=== PATIENT | female | born 1970 | race Caucasian/White ===

== ENCOUNTER → 2019-05-24 | Outpatient (CLI) | payer OTHER | LOC: CAT 12:56 | DX: Z13.6 Encounter for screening for cardiovascular disorders (principal); E78.00 Pure hypercholesterolemia, unspecified; I25.10 Atherosclerotic heart disease of native coronary artery without angina pectoris ==

== ENCOUNTER → 2021-01-02 | Outpatient (CLI) | payer OTHER | LOC: SJCVCIMAG 08:54 | PROVIDERS: ATTEND Internal Medicine Cardiovascular Disease | DX: R07.89 Other chest pain (principal); R00.2 Palpitations; I10 Essential (primary) hypertension; E78.5 Hyperlipidemia, unspecified; R53.83 Other fatigue ==

== ENCOUNTER 2021-04-08 10:35 | Inpatient (IN) | payer BC ==
[~2021-04-08] VITALS: Ht 165.1 cm; Wt 86.2 kg
[~2021-04-08 10:35] MED LIST: PREDNISONE 10 M10 MG PO
[2021-04-08 10:40] VITALS: BP 128/75
[2021-04-08 11:40] LABS: ABSOLUTE NEUTROPHILS 8.7 thou/uL (1.4-8.2); BASOPHILS 0.4 % (0.0-2.0); EOSINOPHILS 0.3 % (0.0-3.0); HEMATOCRIT 39.8 % (37.0-47.0); HEMOGLOBIN 13.3 gm/dL (12.0-15.0); LYMPHOCYTES 7.8 % (24.0-44.0); MCH 27.2 pg (26.0-34.0); MCHC 33.5 g/dL (28.0-37.0); MCV 81.1 fL (80.0-100.0); MONOCYTES 2.9 % (1.0-8.0); PLATELET COUNT 327 thou/uL (150-400); POLYS 88.6 % (36.0-66.0); RBC 4.91 mil/uL (4.20-5.00); RDW 14.2 % (10.5-14.5); WBC 9.8 thou/uL (4.0-11.0)
[2021-04-08 11:49] LABS: CALCIUM 9.6 mg/dL (8.5-10.1); CREATININE 0.8 mg/dL (0.6-1.0); POTASSIUM 3.8 mmol/L (3.5-5.1)
[2021-04-08 15:20] VITALS: BP 94/63
[2021-04-08 16:14] VITALS: BP 106/62
[2021-04-08 19:48] VITALS: BP 148/94
[2021-04-08] MEDS ORDERED: PROTONIX40 M2 PO (20:05)
[2021-04-08] MEDS ORDERED: BYSTOLIC10 MG PO (20:06)
[2021-04-08] MEDS ORDERED: MESALAMINE1.2 GM PO (20:09)
[2021-04-08] MEDS ORDERED: KETOROLAC TROME10 MG PO (20:10)
[2021-04-08] MEDS ORDERED: ONDANSETRON HCL4 M2 PO (20:11)
[2021-04-08] MEDS ORDERED: ZEBUTAL 50-3251 EACH PO (20:17)
--- NOTE | 2021-04-09 03:26 | NUR ---
ASSUMED PT CXAR ETHIS PM. PT IS ALERT AND ORIENTED X4. PT C/O OF PAIN WHICH WAS MANAGED BY PRN PAIN MEDS. PT DID NOT C/O OF N/V. MEDS WERE GIVEN PER EMAR ORDERS. NO CONCERNS WERE VERBALIZED. PT IS ON RA. WILL CONTIUE TO MONITOR.
[2021-04-09 03:58] LABS: CALCIUM 9.1 mg/dL (8.5-10.1); CREATININE 0.7 mg/dL (0.6-1.0); MAGNESIUM 2.3 mg/dL (1.8-2.4); POTASSIUM 3.7 mmol/L (3.5-5.1)
[2021-04-09 04:51] LABS: ABSOLUTE NEUTROPHILS 7.9 thou/uL (1.4-8.2); BASOPHILS 0.2 % (0.0-2.0); HEMATOCRIT 36.1 % (37.0-47.0); HEMOGLOBIN 12.1 gm/dL (12.0-15.0); LYMPHOCYTES 8.2 % (24.0-44.0); MCH 27.5 pg (26.0-34.0); MCHC 33.6 g/dL (28.0-37.0); MCV 81.7 fL (80.0-100.0); MONOCYTES 1.1 % (1.0-8.0); PLATELET COUNT 319 thou/uL (150-400); POLYS 90.5 % (36.0-66.0); RBC 4.42 mil/uL (4.20-5.00); RDW 14.3 % (10.5-14.5); WBC 8.8 thou/uL (4.0-11.0)
[2021-04-09 07:33] VITALS: BP 98/51
[2021-04-09 15:55] VITALS: BP 118/76
[2021-04-09 19:37] VITALS: BP 123/77
--- NOTE | 2021-04-10 03:51 | NUR ---
Assumed pt care at 1900. A/OX4,VSS. C/o abd pain/headache,medicated per EMAR with relief reported. Up ad troy w/o problems,IVF infusing. Reports loose stools after Lactulose and wants it held this morning. Denies N/V. Resting quietly at this time,will contineu to monitor pt.
[2021-04-10 04:05] VITALS: BP 113/69
[2021-04-10 09:20] VITALS: BP 123/79
--- NOTE | 2021-04-10 15:19 | NUR ---
ASSUMED CARE AT SHIFT CHANGE. PT A/O X 4, PLESANT AND CALM THROUGHOUT SHIFT. PT C/O MENSAH AND ABD PAIN THROUGHOUT THE DAY. PRN MEDS GIVEN PER MAR WITH SOME RELIEF. NAUSEA MEDS ALSO GIVEN PER REQUEST. PER GI TO PATIENT, GI WAITING FOR INFLAMMATION TO DECREASE TO POSSIBLY SCOPE AND HOPING TO AVOID SURGERY. VSS. PT UP TO BATHROOM WITH SBA FROM SPOUSE, UP AD LILIANA OTHERWISE, BM X 2 SO FAR TODAY. ASSESSMENTS PER MAR. WILL CONT TO MONITOR AND FOLLOW POC.
[2021-04-10 16:19] VITALS: BP 101/53
--- NOTE | 2021-04-10 16:46 | NUR ---
PT ADMITTED RELATED TO UC AND SBO. CM REVIEWED CHART AND SPOKE WITH CARE TEAM. CM MET WITH PT AND SPOUSE AT BEDSIDE THIS DAY. PT APPEARED TO BE A&0 X4. CM ROLE INTRODUCED. 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 PT INDICATED NO DME OR HH HX. PT INDICATED SHE PLANS TO DC HOME ONCE MEDICALLY STABLE. CM FOLLOWING SHOULD ANY DC NEEDS ARISE. CASE CLOSED.
[2021-04-10 20:20] VITALS: BP 114/69
--- NOTE | 2021-04-11 04:22 | NUR ---
Assumed pt care at 1900. A/OX4,VSS. C/o abd/migraine headache,medicated per EMAR with relief reported. Having loose stools,c/o rectal pain hemmorhoids cream applied as needed. Nausea with no emesis reported. Resting quietly w/o any distress noted at this time will continue to monitor pt.
[2021-04-11 08:00] VITALS: BP 127/78
[2021-04-11 10:02] LABS: HEMATOCRIT 38.5 % (37.0-47.0); HEMOGLOBIN 12.7 gm/dL (12.0-15.0); MCH 27.2 pg (26.0-34.0); MCHC 32.9 g/dL (28.0-37.0); MCV 82.6 fL (80.0-100.0); RBC 4.66 mil/uL (4.20-5.00); RDW 14.7 % (10.5-14.5); WBC 10.3 thou/uL (4.0-11.0)
[2021-04-11 10:21] LABS: ALBUMIN 3.5 g/dL (3.4-5.0); CALCIUM 9.4 mg/dL (8.5-10.1); TOTAL BILIRUBIN 0.3 mg/dL (0.2-1.0)
--- NOTE | 2021-04-11 16:02 | NUR ---
PT HAD REPEAT LABS AND KUB THIS DAY. IT IS ANTICIPATED THAT PT WILL BE ABLE TO DC HOME ONCE MEDICALLY WITH NO NEEDS. CM FOLLOWING.
[2021-04-11 16:34] VITALS: BP 112/64; BP 118/64
[2021-04-11 19:45] VITALS: BP 118/68
--- NOTE | 2021-04-11 19:54 | NUR ---
Assumed pt care this am vs stable, migrane and pain managed with medications as per emar. Diet adn medications are tolerated well, Partial relief is noted, had muddy looking stools d/t medications given. Up ad troy, poc followed progresing well towards goals. at the bed side. Endorsed located within [facility] night nurse.
[2021-04-11 21:16] VITALS: BP 118/68
--- NOTE | 2021-04-12 01:33 | NUR ---
Assumed care on 04/11/21 @ 1900, in bed with spouse at bedside. A&Ox4, c/o migraine headache, zofran iv push and butalbital/apap/caffine provided as ordered. HRRR, Lungs CTA ABD Nx4Q. Hot pack on abdomen and ice on forehead. New order received from Jeremy Tapia for Torodol 30 IV Administered as ordered, and patient reports relief, denies need for Fentanyl for abd pain. BM and urine void noted, D5 fluids running @ 125. Bed in low position, hourly rounding as per unit protocol, call light within reach.
[2021-04-12 07:00] VITALS: BP 138/83
[2021-04-12] MEDS ORDERED: PREDNISONE 20 M20 M1 PO (11:32)
[2021-04-12 12:15] VITALS: BP 138/83
--- NOTE | 2021-04-12 13:37 | NUR ---
Assumed pt care at 7am.Pt in and out of bed independently to bathroom. Assessment completed.vss.Pt c/o nausea and headache.Prn meds given with relief.Dr Hampton here,dc order noted.Pt tolerated full liq given at breakfast and lunch. here early this am.Updates given. Dc summary compile and reviewed with pt .Piv and saline dc'd. Pt will be dc home with by 1400.
== END 2021-04-12 13:57 | disposition home or self-care (01) | DRG 386 ==
LOC: ER 10:35 → EROBS 13:40 → 4W 13:40
PROVIDERS: Internal Medicine Gastroenterology; Nurse Practitioner; Student in an Organized Health Care Education/Training Program; ADMIT Hospitalist; ATTEND Hospitalist
DX: K51.90 Ulcerative colitis, unspecified, without complications (principal); K56.699 Other intestinal obstruction unspecified as to partial versus complete obstruction; K59.00 Constipation, unspecified; G43.909 Migraine, unspecified, not intractable, without status migrainosus; Z20.822 Contact with and (suspected) exposure to COVID-19; Z88.6 Allergy status to analgesic agent; Z88.1 Allergy status to other antibiotic agents; Z88.7 Allergy status to serum and vaccine; Z88.8 Allergy status to other drugs, medicaments and biological substances; Z90.49 Acquired absence of other specified parts of digestive tract; Z90.710 Acquired absence of both cervix and uterus; Z28.21 Immunization not carried out because of patient refusal
CPT/HCPCS: 10040

== ENCOUNTER 2021-04-18 13:28 | Inpatient (IN) | payer BC ==
[~2021-04-18] VITALS: Ht 165.1 cm; Wt 90.7 kg
[2021-04-18] VITALS (15 sets, daily range): BP systolic 66–139; BP diastolic 22–79
--- NOTE | ~2021-04-18 | EMS ---
[address] [address] EMS Patient Care Report Name: MONI DAVID Room #: REG BALA Contreras#: [id number] Admission: 04/18/21 Attend Phys: Discharge: Date of : 66 Report #: [id number] THIS REPORT FOR: //name// Report Transmitted: 04/18/2021 13:22 EMS Care Summary [facility] MED-ACT Incident [id number] @ 04/18/2021 12:36 Incident Location [address] [place] [address] Patient MONI DAVID Female, 50 Years 1970 Patient Address [address] [place] [address] Patient History Cardiac Condition - Other,Ulcerative Colitis, Patient Allergies Morphine,Versed, Patient Medications Bystolic, Fentanyl, Fioricet, Prednisone, Chief Complaint Abdominal pain Disposition Transported No Lights/[place] Reason Abdominal Pain/Problems Transported To [facility] Narrative Arrived on scene to find a 50 y/o female who presented left lateral recumbent position on her bed. Pt presented alert, crying, guarding her abdomen, tachypneic, pale in color, diaphoretic and in obvious discomfort and distress. Pt reports to EMS that she has a hx of ulcerative colitis and that for the past [address] [address] EMS Patient Care Report Name: MONI DAVID Room #: REG BALA Contreras#: [id number] Admission: 04/18/21 Attend Phys: Discharge: Date of : 66 Report #: [id number] 2 weeks she has been experiencing severe abdominal pain. Pt reports that she was hospitalized at [facility] and that she was there for 1 week. Pt reports that she ahs been at home for a week and that her abdominal pain has not gotten any better. Pt reports that her pain initially originated in her left upper and lower abdominal quadrants and that now her entire abdomen hurts. Pt reports that she was scheduled for a colonoscopy today the 18 of April but reports that her pain has increased to the point where she cannot walk. Pt also reports that she has been experiencing nausea and vomiting and that she is also experiencing loose stools due to taking mag citrate as prep for her colonoscope. Pt denied any blood in her stool and or her vomit. Pt also reports that she felt a "pop" in her abdomen and that her pain intensified after said "pop" in her abdomen. Pt rates her pain at a 15/10. Pt denied any SOA, C/P, dizziness, weakness or any other medical complaints. Pt was transported to ED for further eval and tx. See assessment tab, VS, and flowchart for further pt care information. Initial Vitals @12:48P: 65,BP: 103/70, @13:03P: 85,BP: 94/66, @13:04P: 78,ND Suspected: false @13:13P: 78,R: 20,BP: 128/59,SpO2: 98, @13:22P: 86,R: 35,BP: 106/78,Pain: 10/10,GCS: 15,SpO2: 100,Revised Trauma: 11, @12:45P: 75,R: 24,BP: 86/58,Pain: 10/10,GCS: 15,Temp: 97.5F,SpO2: 99,Revised Trauma: 11, Impression Abdominal Pain Procedures @12:51 Fentanyl - 100 Micrograms (mcg) - Intramuscular (IM) Response: Unchanged @13:11 Fentanyl - 100 Micrograms (mcg) - Intramuscular (IM) Response: Unchanged @12:47 IV Therapy - Saline Lock 0cc (20 ga) Site: Antecubital-Left Response: UnchangedFailed @12:58 IV Therapy - Saline Lock 0cc (20 ga) Site: Hand-Right Response: UnchangedFailed @13:05 IV Therapy - Saline Lock 0cc (20 ga) Site: Antecubital-Left Response: UnchangedFailed @13:12 Ondansetron - 4 Milligrams (mg) - Oral Response: Unchanged Timeline 12:34,Call Received 12:34,Psap Call 12:36,[place] [address] EMS Patient Care Report Name: MONI DAVID Room #: REG BALA Contreras#: [id number] Admission: 04/18/21 Attend Phys: Discharge: Date of : 66 Report #: [id number] 12:37,En Route 12:42,On Scene 12:43,At Patient 12:45,BP: 86/58 M,PULSE: 75,RR: 24 R,SPO2: 99 Ox,ETCO2: ,BG: ,PAIN: 10,GCS: 15, 12:47,IV Therapy - Saline Lock 0cc 20 ga Site: Antecubital-Left,Response: UnchangedFailed, 12:48,BP: 103/70 M,PULSE: 65,RR: R,SPO2: Ox,ETCO2: ,BG: ,PAIN: ,GCS: , 12:51,Fentanyl - 100 Micrograms (mcg) - Intramuscular (IM),Response: Unchanged 12:58,IV Therapy - Saline Lock 0cc 20 ga Site: Hand-Right,Response: UnchangedFailed, 13:03,BP: 94/66 M,PULSE: 85,RR: R,SPO2: Ox,ETCO2: ,BG: ,PAIN: ,GCS: , 13:04,BP: / M,PULSE: 78,RR: R,SPO2: Ox,ETCO2: ,BG: ,PAIN: ,GCS: , 13:05,IV Therapy - Saline Lock 0cc 20 ga Site: Antecubital-Left,Response: UnchangedFailed, 13:07,Depart Scene 13:11,Fentanyl - 100 Micrograms (mcg) - Intramuscular (IM),Response: Unchanged 13:12,Ondansetron - 4 Milligrams (mg) - Oral,Response: Unchanged 13:13,BP: 128/59 M,PULSE: 78,RR: 20 R,SPO2: 98 Ox,ETCO2: ,BG: ,PAIN: ,GCS: , 13:22,BP: 106/78 M,PULSE: 86,RR: 35 R,SPO2: 100 Ox,ETCO2: ,BG: ,PAIN: 10,GCS: 15, 13:24,At Destination 13:43,Call Closed Disclaimer v1.1 Copyright 2020 [employer] This EMS Care Summary contains data elements from the applicable legal record (which may be displayed differently). It is designed to provide pertinent information for the following purposes: continuity of care, clinical quality, and state data reporting. The complete legal record is available to ED staff and administrators of the receiving hospital in [employer]'s Patient Tracker. All data is provided "as is."
[~2021-04-18 13:28] MED LIST changes: +BYSTOLIC10 MG PO; +KETOROLAC TROME10 MG PO; +MESALAMINE1.2 GM PO; +ONDANSETRON HCL4 M2 PO; +PREDNISONE 20 M20 M1 PO; +PROTONIX40 M2 PO; +ZEBUTAL 50-3251 EACH PO
[2021-04-18 13:51] LABS: HEMATOCRIT 42.6 % (37.0-47.0); HEMOGLOBIN 13.9 gm/dL (12.0-15.0); MCH 27.3 pg (26.0-34.0); MCHC 32.7 g/dL (28.0-37.0); MCV 83.4 fL (80.0-100.0); RBC 5.1 mil/uL (4.20-5.00); RDW 15.1 % (10.5-14.5)
[2021-04-18 14:10] LABS: ALBUMIN 2.4 g/dL (3.4-5.0); CREATININE 0.9 mg/dL (0.6-1.0); TOTAL BILIRUBIN 0.7 mg/dL (0.2-1.0); TOTAL PROTEIN 7.5 g/dL (6.4-8.2)
[2021-04-18 14:29] LABS: CALCIUM 9.5 mg/dL (8.5-10.1); POTASSIUM 3.4 mmol/L (3.5-5.1)
[2021-04-18 21:04] LABS: HEMATOCRIT 41.7 % (37.0-47.0); HEMOGLOBIN 13.3 gm/dL (12.0-15.0); MCH 26.7 pg (26.0-34.0); MCV 83.5 fL (80.0-100.0); RBC 4.99 mil/uL (4.20-5.00); RDW 14.8 % (10.5-14.5)
[2021-04-18 21:06] LABS: CREATININE 0.8 mg/dL (0.6-1.0); POTASSIUM 4.2 mmol/L (3.5-5.1)
[2021-04-18 21:09] LABS: ALBUMIN 1.5 g/dL (3.4-5.0); MAGNESIUM 2.3 mg/dL (1.8-2.4)
[2021-04-18 21:19] LABS: BE(vivo) -7.4 mmol/L (-2 to +3); HCO3 18.2 mmol/L (22.0-26.0); PCO2 37.1 mmHg (35.0-45.0); PO2 407.9 mmHg (80.0-100.0); sO2 99.8 % (92.0-98.0)
[2021-04-18 21:20] LABS: pH 7.308 (7.360-7.450)
[2021-04-19] VITALS (23 sets, daily range): BP systolic 81–147; BP diastolic 55–81
[2021-04-19 04:20] LABS: BE(vivo) -5.7 mmol/L (-2 to +3); HCO3 16.1 mmol/L (22.0-26.0); PCO2 23.8 mmHg (35.0-45.0); PO2 146.6 mmHg (80.0-100.0); pH 7.448 (7.360-7.450)
[2021-04-19 04:35] LABS: HEMATOCRIT 44.6 % (37.0-47.0); HEMOGLOBIN 14.7 gm/dL (12.0-15.0); MCH 27.1 pg (26.0-34.0); MCHC 32.8 g/dL (28.0-37.0); MCV 82.5 fL (80.0-100.0); RBC 5.41 mil/uL (4.20-5.00); RDW 15.1 % (10.5-14.5); WBC 9.4 thou/uL (4.0-11.0)
[2021-04-19 04:42] LABS: ALBUMIN 1.2 g/dL (3.4-5.0); CALCIUM 7.7 mg/dL (8.5-10.1); CREATININE 0.9 mg/dL (0.6-1.0); MAGNESIUM 2.1 mg/dL (1.8-2.4); PHOSPHORUS 4.7 mg/dL (2.5-4.9); POTASSIUM 4.1 mmol/L (3.5-5.1)
[2021-04-20] VITALS (22 sets, daily range): BP systolic 87–118; BP diastolic 48–70
[2021-04-20 09:09] LABS: ALBUMIN 2.6 g/dL (3.4-5.0); CALCIUM 8.2 mg/dL (8.5-10.1); CREATININE 0.5 mg/dL (0.6-1.0); MAGNESIUM 2.5 mg/dL (1.8-2.4); PHOSPHORUS 2.1 mg/dL (2.5-4.9); POTASSIUM 3.6 mmol/L (3.5-5.1)
[2021-04-20 10:25] LABS: HEMATOCRIT 30.5 % (37.0-47.0); MCH 26.8 pg (26.0-34.0); MCHC 32.8 g/dL (28.0-37.0); MCV 81.7 fL (80.0-100.0); RBC 3.73 mil/uL (4.20-5.00); RDW 14.9 % (10.5-14.5); WBC 9.9 thou/uL (4.0-11.0)
[2021-04-20 12:44] LABS: BE(vivo) -0.7 mmol/L (-2 to +3); HCO3 22.8 mmol/L (22.0-26.0); PCO2 33.4 mmHg (35.0-45.0); PO2 89.3 mmHg (80.0-100.0); pH 7.452 (7.360-7.450); sO2 97.2 % (92.0-98.0)
[2021-04-21] VITALS (16 sets, daily range): BP systolic 90–115; BP diastolic 53–74
[2021-04-21 08:24] LABS: HEMATOCRIT 30.8 % (37.0-47.0); HEMOGLOBIN 10.1 gm/dL (12.0-15.0); MCH 26.8 pg (26.0-34.0); MCHC 32.7 g/dL (28.0-37.0); MCV 82.2 fL (80.0-100.0); RBC 3.75 mil/uL (4.20-5.00); RDW 15.2 % (10.5-14.5); WBC 10.7 thou/uL (4.0-11.0)
[2021-04-21 08:42] LABS: ALBUMIN 1.9 g/dL (3.4-5.0); CALCIUM 8.4 mg/dL (8.5-10.1); CREATININE 0.6 mg/dL (0.6-1.0); MAGNESIUM 2.8 mg/dL (1.8-2.4); PHOSPHORUS 1.6 mg/dL (2.5-4.9); POTASSIUM 3.7 mmol/L (3.5-5.1); TOTAL BILIRUBIN 0.8 mg/dL (0.2-1.0); TOTAL PROTEIN 4.8 g/dL (6.4-8.2)
[2021-04-21 22:52] LABS: URINE BLOOD NEGATIVE (Negative); URINE CLARITY CLEAR; URINE COLOR ORANGE; URINE GLUCOSE-RANDOM* TRACE (Negative); URINE KETONES TRACE (Negative); URINE LEUKOCYTES-REFLEX NEGATIVE (Negative); URINE NITRITE-REFLEX NEGATIVE (Negative); URINE PROTEIN (DIPSTICK) 1+ (Negative); URINE SPECIFIC GRAVITY 1.025 (1.005-1.035); URINE UROBILINOGEN 0.2 E.U./dl (0.2-1.0)
[2021-04-21 23:03] LABS: CASTS None Seen /LPF (None Seen); ICTOTEST (BILI CONFIRMATORY) Positive (Negative); MUCUS 0-3 Light strn/LPF (None Seen); SQUAMOUS None Seen /LPF (0-3); URINE BILIRUBIN 2+ (Negative); URINE WBC-REFLEX None Seen /HPF (0-5)
[2021-04-21 23:04] LABS: BACTERIA-REFLEX 1-9 Few /HPF (None Seen); CRYSTALS None Seen /LPF (None Seen); URINE RBC None Seen /HPF (NONE SEEN)
[2021-04-22] VITALS (17 sets, daily range): BP systolic 97–127; BP diastolic 56–73
[2021-04-22 05:39] LABS: HEMOGLOBIN 10.4 gm/dL (12.0-15.0); MCH 26.7 pg (26.0-34.0); MCHC 32.4 g/dL (28.0-37.0); MCV 82.4 fL (80.0-100.0); RBC 3.89 mil/uL (4.20-5.00); RDW 14.8 % (10.5-14.5); WBC 6.8 thou/uL (4.0-11.0)
[2021-04-22 06:10] LABS: ALBUMIN 1.6 g/dL (3.4-5.0); CALCIUM 7.9 mg/dL (8.5-10.1); CREATININE 0.4 mg/dL (0.6-1.0); MAGNESIUM 2.5 mg/dL (1.8-2.4); POTASSIUM 4.2 mmol/L (3.5-5.1); TOTAL BILIRUBIN 1.2 mg/dL (0.2-1.0); TOTAL PROTEIN 4.3 g/dL (6.4-8.2)
--- NOTE | 2021-04-22 16:06 | PATH ---
[facility] [address] [place] [address] PATHOLOGY RPT PROCEDURE Name: ZENIA DAVID Room #: 239-P ADM IN M.R.#: [id number] Admission: 04/18/21 Date of : 66 Discharge: Report #: [id number] Path Case #: [id number] [facility] Accession Number: [id number] . 01 Material submitted: . sigmoid colon - SIGMOID COLON . 01 Clinical history: . LAPAROSCOPIC COLECTOMY PERFORATED BOWEL PERFORATED BOWEL, TICULENT PERITONITIS . 02 Diagnosis: Sigmoid colon (colectomy): - Transmural necrosis with perforation, marked acute and chronic inflammation, granulation tissue, and acute and chronic serositis. - Diverticulosis. (DOM:ian; 04/22/2021) QTP 04/22/2021 1300 Local . 02 Comment: We find no evidence of malignancy in any of the tissue examined. (DOM:ian; 04/22/2021) . 02 Electronically signed: . Chance Encarnacion MD, Pathologist NPI- [id number] . 01 Gross description: . The specimen is received in formalin, labeled "Zenia David, sigmoid colon". Received is an unoriented segment of colon measuring 16.2 cm in length and ranges in diameter from 1.5-4.1 cm. Both margins are stapled closed. The serosal surface is kwong-brooks to light brooks and shaggy in appearance. There are two areas of perforation measuring 1.0 x 0.4 and 2.5 x 1.5 cm, which are located 7.1 cm from the closest margin. The surrounding serosal surface is inked black. The attached pericolic fat measures up to 3.2 cm in thickness and displays overlying exudate. Several diverticula are identified. Sectioning through the attached pericolic fat reveals no readily identifiable lymph nodes. The specimen is submitted representatively as follows: . A1-A2 both margins A3-A4 plastic products sales representative sections through areas of perforation A5-A7 plastic products sales representative sections of diverticula. (CAA; 04/19/2021) QAC/QA 04/19/2021 1550 Local . 02 [place] [address] PATHOLOGY RPT PROCEDURE Name: JOANNZENIA PRICILLA Room #: 239-P ADM IN M.R.#: [id number] Admission: 04/18/21 Date of : 66 Discharge: Report #: [id number] Path Case #: [id number] Pathologist provided ICD-10: K63.1, K52.9, K65.8, K57.30 . 02 CPT . 288333 Specimen Comment: A courtesy copy of this report has been sent to [phone], [phone] Specimen Comment: [phone], Specimen Comment: Report sent to , DR HOLDEN / DR MCCORMICK Performed at: 01 [facility] [address] [place] [id number] MD Damion Benjamin MD Phone: [phone] Performed at: 02 [facility] [address] [id number] MD Chance Encarnacion MD Phone: [phone]
[2021-04-23 05:26] VITALS: BP 134/79
[2021-04-23 05:41] LABS: HEMATOCRIT 30.4 % (37.0-47.0); HEMOGLOBIN 9.8 gm/dL (12.0-15.0); MCH 26.4 pg (26.0-34.0); MCHC 32.3 g/dL (28.0-37.0); MCV 81.8 fL (80.0-100.0); RBC 3.72 mil/uL (4.20-5.00); RDW 15.1 % (10.5-14.5); WBC 7.8 thou/uL (4.0-11.0)
[2021-04-23 05:51] LABS: CALCIUM 8.1 mg/dL (8.5-10.1); CREATININE 0.4 mg/dL (0.6-1.0); POTASSIUM 3.6 mmol/L (3.5-5.1)
[2021-04-23 05:58] LABS: ALBUMIN 1.5 g/dL (3.4-5.0); DIRECT BILIRUBIN 0.8 mg/dL (<0.1-0.2); TOTAL BILIRUBIN 1.2 mg/dL (0.2-1.0); TOTAL PROTEIN 4.5 g/dL (6.4-8.2)
[2021-04-23 08:25] VITALS: BP 131/81
[2021-04-23 11:36] VITALS: BP 137/76
[2021-04-23 15:46] VITALS: BP 137/93
[2021-04-23 19:31] VITALS: BP 128/85
[2021-04-24] VITALS (7 sets, daily range): BP systolic 116–142; BP diastolic 74–82
--- NOTE | 2021-04-24 08:33 | HC ---
[facility] [address] CONSULTATION Name: MONI DAVID Room #: 209-P ADM IN M.R.#: [id number] Admission: 04/18/21 Attend Phys: Darrius Anaya MD Discharge: Date of : 66 Report #: [id number] THIS REPORT FOR: cc: Jeremy Moore MD, Christian C. MD McElhinney, Christian C. MD ~ cc: Darrius Anaya MD, Isac Antonio MD DATE OF SERVICE: 04/18/2021 HISTORY OF PRESENT ILLNESS: The patient is a 50-year-old female who is a patient of [facility], being followed for history of ulcerative colitis. She had been doing well on mesalamine orally in general, but began having a flare recently. We initially increased her dose of mesalamine, later added steroids. Despite this, she was having continued significant symptoms of pain, some bleeding and diarrhea. She was, therefore, hospitalized from 04/08/2021 to 04/12/2021 for a flare, was given IV steroids. She did report some improvement in her symptoms. A CT scan of the abdomen and pelvis at that time did show a large amount of stool and possible stricture in the sigmoid colon. Plan was to continue steroids, which she has been on at a lower dose and then proceed with colonoscopy. The patient was actually scheduled for colonoscopy with me today and she called this morning saying she was in more significant abdominal pain, although she has been having crampy abdominal pain ongoing for several days. The pain became very intense. I instructed the patient to be evaluated in the Emergency Room and we did not proceed with a colonoscopy. She called the ambulance instead. Here on admission through the Emergency Room, a CT scan of the abdomen was performed, which showed a moderate amount of free air and fluid, fluid-filled small bowel and colon consistent with a history of bowel prep for planned colonoscopy later today. The colon was distended in the upper portion of the ascending and remains distended and fluid filled. Sigmoid also fluid filled, majority of this solid stool previous identified in the colon has been evacuated from the colon. Small amount of formed stool remaining in the sigmoid colon and narrowed segment of the sigmoid persists and there was a fluid and gas collection in the cul-de-sac. I contacted Dr. Antonio and the patient is scheduled for surgery emergently today. She was given IV antibiotics in the Emergency Room. PAST MEDICAL HISTORY: Ulcerative colitis, history of migraine headaches, previous cholecystectomy, hysterectomy. ALLERGIES: VERSED, MORPHINE, TETANUS AND ZITHROMAX. REVIEW OF SYSTEMS: As per HPI. CURRENT MEDICATIONS: Prednisone 40 mg on a daily basis, Protonix 40 daily, mesalamine 1.2 grams, she has been taking 4 of those per day, ketorolac [address] [address] CONSULTATION Name: MONI DAVID Room #: 209-P ADM IN M.R.#: [id number] Admission: 04/18/21 Attend Phys: Darrius Anaya MD Discharge: Date of : 66 Report #: [id number] p.r.n., Cici p.r.n. FAMILY HISTORY: Negative for colon cancer. SOCIAL HISTORY: No tobacco use. Occasional alcohol use. PHYSICAL EXAMINATION: VITAL SIGNS: Temperature 37.0, blood pressure 139/79, respiratory rate 24, pulse 126. GENERAL: The patient is in significant distress due to abdominal pain. HEENT: Sclerae nonicteric. NECK: Supple. CARDIOVASCULAR: Regular rhythm. Tachycardic. CHEST: Clear to auscultation. ABDOMEN: Very tender. Rebound tenderness noted. Somewhat distended, but soft. EXTREMITIES: No cyanosis, clubbing or edema. LABORATORY DATA: WBC 7.0, hemoglobin 13.9, platelet count is 340. Sodium 132, potassium 3.4, chloride 98, bicarbonate 21, BUN 16, creatinine 0.9, glucose 182. Lactic acid level 5.6, calcium 9.5, magnesium 2.3. AST 93, ALT is 216, alkaline phosphatase 193, albumin 2.4. INR 1.0. COVID was negative. ASSESSMENT AND PLAN: Perforated colon, likely sigmoid colon. The patient with a history of ulcerative colitis, recent flare, being treated with steroids in addition to her scheduled mesalamine. The patient was to have a colonoscopy today for further evaluation of possible stricture, but now presents with perforation. Dr. Antonio is taking the patient to the operating room for repair, likely resection with colostomy. We will continue to follow closely. The patient has been started on IV antibiotics. Thank you for allowing me to participate in her care. <ELECTRONICALLY SIGNED> By: Jeremy Moore MD 04/24/21 0833 1808 0244 Jeremy Moore MD /nt
[2021-04-24 13:35] LABS: HEMATOCRIT 31.7 % (37.0-47.0); HEMOGLOBIN 10.2 gm/dL (12.0-15.0)
[2021-04-24 15:55] LABS: MCH 26.3 pg (26.0-34.0); MCHC 32.2 g/dL (28.0-37.0); MCV 81.7 fL (80.0-100.0); RBC 3.89 mil/uL (4.20-5.00); RDW 14.9 % (10.5-14.5); WBC 11.1 thou/uL (4.0-11.0)
[2021-04-24 15:58] LABS: CREATININE 0.5 mg/dL (0.6-1.0); POTASSIUM 3.6 mmol/L (3.5-5.1)
[2021-04-24 16:02] LABS: ALBUMIN 1.5 g/dL (3.4-5.0); MAGNESIUM 2.2 mg/dL (1.8-2.4); PHOSPHORUS 2.5 mg/dL (2.5-4.9)
[2021-04-24 17:36] LABS: BE(vivo) 3.1 mmol/L (-2 to +3); HCO3 26.5 mmol/L (22.0-26.0); PO2 105.3 mmHg (80.0-100.0); pH 7.485 (7.360-7.450); sO2 98.2 % (92.0-98.0)
[2021-04-25] VITALS (7 sets, daily range): BP systolic 110–152; BP diastolic 58–82
[2021-04-25 05:41] LABS: ABSOLUTE NEUTROPHILS 8.1 thou/uL (1.4-8.2); BASOPHILS 0.2 % (0.0-2.0); EOSINOPHILS 0.7 % (0.0-3.0); HEMATOCRIT 29.7 % (37.0-47.0); HEMOGLOBIN 9.8 gm/dL (12.0-15.0); LYMPHOCYTES 4.7 % (24.0-44.0); MCH 26.9 pg (26.0-34.0); MCHC 32.8 g/dL (28.0-37.0); PLATELET COUNT 143 thou/uL (150-400); POLYS 91.4 % (36.0-66.0); RBC 3.62 mil/uL (4.20-5.00); RDW 14.6 % (10.5-14.5); WBC 8.8 thou/uL (4.0-11.0)
[2021-04-25 06:07] LABS: ALBUMIN 1.4 g/dL (3.4-5.0); CALCIUM 7.8 mg/dL (8.5-10.1); CREATININE 0.4 mg/dL (0.6-1.0); POTASSIUM 3.2 mmol/L (3.5-5.1); TOTAL BILIRUBIN 0.9 mg/dL (0.2-1.0)
[2021-04-26] VITALS (27 sets, daily range): BP systolic 88–148; BP diastolic 50–87
[2021-04-26 10:35] LABS: HEMATOCRIT 27.6 % (37.0-47.0); MCH 26.5 pg (26.0-34.0); MCHC 32.6 g/dL (28.0-37.0); MCV 81.2 fL (80.0-100.0); RDW 14.5 % (10.5-14.5); WBC 6.9 thou/uL (4.0-11.0)
[2021-04-26 10:49] LABS: PLATELET COUNT 235 thou/uL (150-400)
[2021-04-26 11:01] LABS: ALBUMIN 1.4 g/dL (3.4-5.0); CALCIUM 7.9 mg/dL (8.5-10.1); CREATININE 0.4 mg/dL (0.6-1.0); PHOSPHORUS 2.7 mg/dL (2.5-4.9); TOTAL BILIRUBIN 0.7 mg/dL (0.2-1.0); TOTAL PROTEIN 5.1 g/dL (6.4-8.2)
[2021-04-26 11:06] LABS: POTASSIUM 2.8 mmol/L (3.5-5.1)
[2021-04-26 13:01] LABS: ABSOLUTE NEUTROPHILS 6.1 thou/uL (1.4-8.2); ANISOCYTOSIS 1+
[2021-04-26 17:18] LABS: BE(vivo) 2.6 mmol/L (-2 to +3); PO2 349.9 mmHg (80.0-100.0); pH 7.393 (7.360-7.450); sO2 99.8 % (92.0-98.0)
--- NOTE | 2021-04-26 17:19 | HC ---
[facility] [place] [address] CONSULTATION Name: MONI DAVID Room #: 242-P ADM IN M.R.#: [id number] Admission: 04/18/21 Attend Phys: Darrius Anaya MD Discharge: Date of : 66 Report #: [id number] THIS REPORT FOR: cc: Jeremy Moore MD, Christian C. MD Geha, Daniel J. MD ~ DATE OF SERVICE: 04/25/2021 INFECTIOUS DISEASE CONSULTATION DATE OF SERVICE: 04/25/2021 REASON FOR CONSULTATION: I was asked to evaluate concerning postoperative intraabdominal abscess. HISTORY OF PRESENT ILLNESS: The patient was a 50-year-old with underlying ulcerative colitis who has been on mesalamine, longstanding. She has also had issue with distal colon stricture. Hospitalized on 04/08 with flare up of her ulcerative colitis. She also was partially obstructed that was relieved with corticosteroids laxatives. She was discharged on 04/12 only to return on 04/18/2021 after she had an acute perforation, found to be due to a stercoral ulcer that was related to the sigmoid stricture. She had feculent peritonitis and underwent a laparoscopic sigmoidectomy and creation of an end colostomy. Pathology report showed colitis, but no definite degree evident from the path report. There was no evidence of tumor. She developed septic shock and was treated in the intensive care unit for several days. Extubated several days ago. She is now on 2 liters of oxygen per nasal cannula. Over the past 48 hours, she has developed increased erythema involving the abdominal wall and left flank. She was placed on vancomycin, clindamycin and Zosyn. A CT scan, which showed evidence of intraabdominal and abdominal wall abscess and drains were placed. She has had no fever or chills. She is on 2 liters of oxygen. She becomes short of breath with activity. She has not been out of bed yet. Her ostomy is functioning. Her colostomy is functioning. She has had no stool from her anus. She has had reasonable urine output. She remains edematous. Purulent drainage was aspirated from her intraabdominal fluid collection. ALLERGIES: AZITHROMYCIN, VERSED, MORPHINE, TETANUS TOXOID. MEDICATIONS: As noted on her AUG. PAST MEDICAL HISTORY: Ulcerative colitis, bilateral carpal tunnel syndrome. PAST SURGICAL HISTORY: Cholecystectomy, hysterectomy, left eye cyst. FAMILY HISTORY: No report of tuberculosis. 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 REVIEW OF SYSTEMS: A 14-point review of system was negative other than what has been described above. PHYSICAL EXAMINATION: VITAL SIGNS: She is afebrile and hemodynamically stable. On 2 liters of oxygen per nasal cannula. She had 2+ anasarca. HEENT: Abdominal wall cellulitis involving the mid to lower abdomen and pannus, which extended over to the left flank region. Erythema also extending down into her proximal thighs. No palpable adenopathy. Eyes without scleral icterus. Mouth without mucositis. NECK: Supple. She had a right IJ catheter in place with no drainage. LUNGS: Decreased breath sounds in the bases bilaterally. HEART: Regular, without murmur. ABDOMEN: Diffusely tender. She had a colostomy in the left lower quadrant, which was edematous. Laparoscopic incisions were without drainage. Three drains in the lower abdomen in place with seropurulent fluid in the bags. EXTREMITIES: Without clubbing or cyanosis. Cranial nerves intact. Strength in upper and lower extremities within normal limits. PSYCHIATRIC: Mood without anxiety. LABORATORY DATA: Reviewed. Microbiology reviewed. CT scan of the abdomen and pelvis reviewed. IMAGING: Chest x-ray reviewed. ASSESSMENT AND PLAN: A 50-year-old with longstanding ulcerative colitis with bowel stricture, who developed acute worsening and subsequent stercoral ulcer leading to bowel perforation and fecal peritonitis, now postoperative day #7 from laparoscopic sigmoid resection, peritoneal washout, colostomy formation. Now with postoperative abscesses and abdominal wall cellulitis. She has anemia, mild thrombocytopenia and left shift white count. Organisms of concern would include intestinal pathogens as well as yeast and potential resistance. Unclear how much of her ulcerative colitis is playing a role here. RECOMMENDATION: Continue broad antibiotic coverage. Await culture results. Serial CT scans will be necessary. We will discuss further with Gastroenterology and General Surgery regarding her treatment of ulcerative colitis at this point. Diuresis as much as possible to control for peripheral edema. <ELECTRONICALLY SIGNED> By: Winston Serna MD 04/26/21 1719 52 25 Winston Serna MD /nt
[2021-04-26 18:22] LABS: HEMATOCRIT 28.7 % (37.0-47.0); HEMOGLOBIN 9.4 gm/dL (12.0-15.0); MCH 26.8 pg (26.0-34.0); MCHC 32.6 g/dL (28.0-37.0); RBC 3.5 mil/uL (4.20-5.00); RDW 14.6 % (10.5-14.5)
[2021-04-26 18:39] LABS: ALBUMIN 1.8 g/dL (3.4-5.0); CALCIUM 7.8 mg/dL (8.5-10.1); CREATININE 0.4 mg/dL (0.6-1.0); MAGNESIUM 2.1 mg/dL (1.8-2.4); PHOSPHORUS 3.4 mg/dL (2.6-4.7); POTASSIUM 3.3 mmol/L (3.5-5.1)
[2021-04-27] VITALS (60 sets, daily range): BP systolic 81–126; BP diastolic 24–84
[2021-04-27 00:06] LABS: GLYCOHEMOGLOBIN (HGB A1C) 6.2 % (4.8-5.6)
[2021-04-27 05:35] LABS: ABSOLUTE NEUTROPHILS 8.3 thou/uL (1.4-8.2); BASOPHILS 0.2 % (0.0-2.0); EOSINOPHILS 0.1 % (0.0-3.0); HEMOGLOBIN 8.8 gm/dL (12.0-15.0); LYMPHOCYTES 3.6 % (24.0-44.0); MCH 26.5 pg (26.0-34.0); MCHC 32.5 g/dL (28.0-37.0); MCV 81.7 fL (80.0-100.0); MONOCYTES 5.3 % (1.0-8.0); PLATELET COUNT 296 thou/uL (150-400); POLYS 90.8 % (36.0-66.0); RDW 14.6 % (10.5-14.5); WBC 9.1 thou/uL (4.0-11.0)
[2021-04-27 05:48] LABS: ALBUMIN 1.6 g/dL (3.4-5.0); CREATININE 0.4 mg/dL (0.6-1.0); MAGNESIUM 2.1 mg/dL (1.8-2.4); PHOSPHORUS 2.8 mg/dL (2.6-4.7); POTASSIUM 3.8 mmol/L (3.5-5.1); TOTAL BILIRUBIN 0.5 mg/dL (0.2-1.0); TOTAL PROTEIN 4.8 g/dL (6.4-8.2)
[2021-04-27 09:11] LABS: BE(vivo) 3.8 mmol/L (-2 to +3); PCO2 40.3 mmHg (35.0-45.0); PO2 111.7 mmHg (80.0-100.0); pH 7.459 (7.360-7.450); sO2 98.3 % (92.0-98.0)
[2021-04-28] VITALS (33 sets, daily range): BP systolic 96–127; BP diastolic 50–90
[2021-04-28 02:16] LABS: ABSOLUTE NEUTROPHILS 10.1 thou/uL (1.4-8.2); BASOPHILS 0.4 % (0.0-2.0); EOSINOPHILS 0.5 % (0.0-3.0); HEMATOCRIT 28.3 % (37.0-47.0); HEMOGLOBIN 9.3 gm/dL (12.0-15.0); LYMPHOCYTES 5.8 % (24.0-44.0); MCH 26.5 pg (26.0-34.0); MCHC 32.8 g/dL (28.0-37.0); MCV 80.8 fL (80.0-100.0); MONOCYTES 4.7 % (1.0-8.0); POLYS 88.6 % (36.0-66.0); RDW 14.8 % (10.5-14.5); WBC 11.4 thou/uL (4.0-11.0)
[2021-04-28 02:21] LABS: PLATELET COUNT 468 thou/uL (150-400)
[2021-04-28 02:29] LABS: MAGNESIUM 1.8 mg/dL (1.8-2.4)
[2021-04-28 02:32] LABS: ALBUMIN 1.9 g/dL (3.4-5.0); CALCIUM 7.9 mg/dL (8.5-10.1); CREATININE 0.4 mg/dL (0.6-1.0); POTASSIUM 3.1 mmol/L (3.5-5.1); TOTAL BILIRUBIN 0.7 mg/dL (0.2-1.0); TOTAL PROTEIN 5.2 g/dL (6.4-8.2)
[2021-04-28 04:33] LABS: BE(vivo) 6.4 mmol/L (-2 to +3); PO2 143.4 mmHg (80.0-100.0); pH 7.504 (7.360-7.450)
[2021-04-28 21:08] LABS: ALBUMIN 1.8 g/dL (3.4-5.0); CALCIUM 7.8 mg/dL (8.5-10.1); CREATININE 0.3 mg/dL (0.6-1.0); MAGNESIUM 1.8 mg/dL (1.8-2.4); PHOSPHORUS 2.6 mg/dL (2.6-4.7); POTASSIUM 3.7 mmol/L (3.5-5.1); TOTAL BILIRUBIN 0.7 mg/dL (0.2-1.0); TOTAL PROTEIN 4.8 g/dL (6.4-8.2)
[2021-04-29] VITALS (43 sets, daily range): BP systolic 90–131; BP diastolic 51–80
[2021-04-29 04:35] LABS: ABSOLUTE NEUTROPHILS 12.3 thou/uL (1.4-8.2); BASOPHILS 0.5 % (0.0-2.0); EOSINOPHILS 0.5 % (0.0-3.0); HEMATOCRIT 28.5 % (37.0-47.0); HEMOGLOBIN 9.6 gm/dL (12.0-15.0); LYMPHOCYTES 6.5 % (24.0-44.0); MCH 27.4 pg (26.0-34.0); MCHC 33.9 g/dL (28.0-37.0); MONOCYTES 4.4 % (1.0-8.0); PLATELET COUNT 538 thou/uL (150-400); POLYS 88.1 % (36.0-66.0); RBC 3.52 mil/uL (4.20-5.00); RDW 14.9 % (10.5-14.5)
[2021-04-29 04:48] LABS: ALBUMIN 1.8 g/dL (3.4-5.0); CALCIUM 8.1 mg/dL (8.5-10.1); CREATININE 0.3 mg/dL (0.6-1.0); MAGNESIUM 1.9 mg/dL (1.8-2.4); PHOSPHORUS 2.3 mg/dL (2.6-4.7); POTASSIUM 3.5 mmol/L (3.5-5.1); TOTAL BILIRUBIN 0.9 mg/dL (0.2-1.0); TOTAL PROTEIN 5.1 g/dL (6.4-8.2)
[2021-04-29 05:33] LABS: BE(vivo) 7.7 mmol/L (-2 to +3); HCO3 30.7 mmol/L (22.0-26.0); PCO2 36.6 mmHg (35.0-45.0); PO2 77.8 mmHg (80.0-100.0); pH 7.541 (7.360-7.450); sO2 96.8 % (92.0-98.0)
[2021-04-30] VITALS (34 sets, daily range): BP systolic 91–120; BP diastolic 39–75
[2021-04-30 05:33] LABS: CALCIUM 8.1 mg/dL (8.5-10.1); CREATININE 0.4 mg/dL (0.6-1.0); PHOSPHORUS 2.5 mg/dL (2.5-4.9)
[2021-04-30 05:37] LABS: POTASSIUM 2.8 mmol/L (3.5-5.1)
[2021-04-30 09:45] LABS: HEMATOCRIT 25.1 % (37.0-47.0); HEMOGLOBIN 7.9 gm/dL (12.0-15.0); MCH 26.2 pg (26.0-34.0); MCHC 31.5 g/dL (28.0-37.0); MCV 83.3 fL (80.0-100.0); RBC 3.01 mil/uL (4.20-5.00); RDW 15.2 % (10.5-14.5); WBC 9.9 thou/uL (4.0-11.0)
--- NOTE | 2021-04-30 15:07 | PATH ---
[facility] [address] [place] [address] PATHOLOGY RPT PROCEDURE Name: MONI DAVID Room #: 242-P ADM IN M.R.#: [id number] Admission: 04/18/21 Date of : 66 Discharge: Report #: [id number] Path Case #: [id number] Note [facility] Accession Number: [id number] TESTS RESULT FLAG UNITS REF RANGE LAB Clinician Provided Cytology Information No. of containers..01 Other (Miscellaneous) Source: 01 ABDOMEN FLUID DIAGNOSIS: 01 ABDOMEN FLUID NEGATIVE FOR MALIGNANT CELLS. THIS INTERPRETATION INCLUDES EVALUATION OF A CELL BLOCK. COMMENT, ABUNDANT BLOOD AND ACUTE INFLAMMATORY CELLS PRESENT. ALSO FOREIGN VEGETABLE MATTER PRESENT SUGGEST CLINICAL CORRELATION Signed out by: 01 Damion Benjamin MD, Pathologist NPI- [id number] Performed by: Briana Alexander, Rn Appeals ([facility]) Gross description: 01 2ML, TAVO CALHOUN /THEA 04/26/2021 1852 Local FLAG LEGEND: L-Low Normal,H-High Normal,LL-Alert Low,HH-Alert High <-Panic Low,>-Panic High,A-Abnormal,AA-Critical Abnormal Performed at: [address] [place] [address] Damion Benjamin MD, Specimen Comment: A courtesy copy of this report has been sent to [phone] Specimen Comment: Report sent to Specimen Comment: A duplicate report has been generated due to demographic updates. Performed at: [address], [place], [place] [id number] MD Damion Benjamin MD Phone: [phone]
[2021-05-01] VITALS (20 sets, daily range): BP systolic 101–141; BP diastolic 53–87
[2021-05-01 05:24] LABS: HEMATOCRIT 24.8 % (37.0-47.0); HEMOGLOBIN 8.1 gm/dL (12.0-15.0); MCH 26.8 pg (26.0-34.0); MCHC 32.6 g/dL (28.0-37.0); MCV 82.3 fL (80.0-100.0); RBC 3.01 mil/uL (4.20-5.00); WBC 10.4 thou/uL (4.0-11.0)
[2021-05-01 06:04] LABS: POTASSIUM 3.6 mmol/L (3.5-5.1)
[2021-05-01 06:05] LABS: ALBUMIN 1.4 g/dL (3.4-5.0); CALCIUM 8.2 mg/dL (8.5-10.1); CREATININE 0.5 mg/dL (0.6-1.0); MAGNESIUM 2.1 mg/dL (1.8-2.4); TOTAL BILIRUBIN 0.4 mg/dL (0.2-1.0); TOTAL PROTEIN 5.1 g/dL (6.4-8.2)
[2021-05-01 12:50] LABS: % SATURATION 7 % (20-39); IRON 9 ug/dL (50-170); TIBC 123 ug/dL (250-450)
[2021-05-02] VITALS (32 sets, daily range): BP systolic 102–151; BP diastolic 64–96
[2021-05-02 05:28] LABS: CALCIUM 8.2 mg/dL (8.5-10.1); CREATININE 0.4 mg/dL (0.6-1.0); PHOSPHORUS 3.1 mg/dL (2.5-4.9); POTASSIUM 3.8 mmol/L (3.5-5.1)
--- NOTE | 2021-05-02 09:11 | EKG ---
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: [id number] : 1970 Requested By: Neida Minaya Order Number: [id number] MD: Good Dexter Measurements Intervals Clark Rate: 119 P: 17 WV: 140 QRS: 56 QRSD: 76 T: 208 QT: 278 QTc: 392 Interpretive Statements Sinus tachycardia Borderline repolarization abnormality Compared to ECG 01/18/2007 14:47:[address] segment abnormality is now present Electronically Signed On 05-02-2021 9:11:18 [employer] by Good Dexter [email or web address] <ELECTRONICALLY SIGNED> By: Good Dexter MD, [facility] 05/02/21 0911 2316 2316 Good Dexter MD, FACC /EPI
--- NOTE | 2021-05-02 18:04 | HC ---
[facility] [place] [address] CONSULTATION Name: MONI DAVID Room #: 242-P ADM IN M.R.#: [id number] Admission: 04/18/21 Attend Phys: Isac Antonio MD Discharge: Date of : 66 Report #: [id number] THIS REPORT FOR: cc: Jeremy Moore MD, Christian C. MD Althoff,Rodo Akers MD ~ DATE OF SERVICE: 04/29/2021 CHIEF COMPLAINT: Surgical wound to the abdominal wall. HISTORY OF PRESENT ILLNESS: This is a 50-year-old female patient with a history of ulcerative colitis. She had a recent hospitalization in March, was able to be discharged home. She was apparently at home, sitting on the toilet when she felt a pop and then developed severe abdominal pain. She was in the process of undergoing a bowel prep for an elective colonoscopy. She presented to the Emergency Department, was found to have pneumoperitoneum. She underwent emergency surgery by Dr. Antonio initially on 04/18/2021. She was found to have feculent peritonitis and a large fecaloma near sigmoid stricture at the rectosigmoid junction. She underwent laparoscopic sigmoidectomy and laparoscopic creation of an end colostomy at that time. On 04/26/2021, she was noted to have some abdominal wall cellulitis, underwent exploratory laparotomy, abdominal washout, placement of an ABThera wound VAC and incision and drainage of the left flank and abdominal wall area. Then, on 04/28/2021, she underwent for a second look laparotomy with abdominal washout and placement of drains and abdominal closure. I was asked by Dr. Antonio to see her in consultation for ongoing wound care. The patient at this time is in ICU. She states she feels weak, but is feeling somewhat better. PAST MEDICAL HISTORY: History of ulcerative colitis, previous cholecystectomy and hysterectomy. MEDICATIONS: Includes pantoprazole, Bystolic, mesalamine, ketorolac, ondansetron, Zebutal. ALLERGIES: AZITHROMYCIN, MIDAZOLAM, MORPHINE, TETANUS VACCINE AND TOXOID. SOCIAL HISTORY: The patient admits to occasional alcohol use. She is , accompanied by her . 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 No history of tobacco use. FAMILY HISTORY: Noncontributory. REVIEW OF SYSTEMS: Reviewed and negative other than in the history of present illness and otherwise were unobtainable due to her fatigue and pain. PHYSICAL EXAMINATION: [facility] [address] [place] [address] CONSULTATION Name: MONI DAVID Room #: 242-P ADM IN .[place].#: [id number] Admission: 04/18/21 Attend Phys: Isac Antonio MD Discharge: Date of : 66 Report #: [id number] VITAL SIGNS: The patient's vital signs at this time include temperature 36.7, pulse 101, blood pressure of 101/58, respiratory rate of 37. GENERAL: This is a somewhat chronically ill-appearing female patient who appears to be in mild discomfort. HEENT: Head normocephalic. Nose and throat are clear. NECK: Supple. LUNGS: Diminished. HEART: Regular rhythm. ABDOMEN: Soft. There is some generalized tenderness. There is a midline surgical incision that is closed loosely. There are a few gauze tesha in place. There is no overt erythema. A colostomy is in place with an ostomy appliance in place. There is no bleeding or appearance of abnormal drainage. Just lateral to that on the left side of the abdominal wall, there is a surgical wound that is fairly deep with undermining, that approaches the colostomy in the subcutaneous space as well as extends inferiorly. There is no overt cellulitis at this time of the abdominal wall. NEUROLOGIC: The patient is alert and oriented. LABORATORY STUDIES: Include sodium 141, potassium 3.5, chloride 104, CO2 of 29, BUN 5, creatinine is 0.3, glucose 109, phosphorus 2.3, albumin is 1.8. White blood cell count is 14,000 with a hemoglobin of 9.6. CLINICAL IMPRESSION: 1. Surgical wound, abdominal wall. 2. Surgical incision, abdominal wall, status post laparoscopic sigmoidectomy and end-colostomy creation on 04/18/2021. 3. Surgical incision to the left abdominal wall following abdominal wall abscesses, following feculent peritonitis. 4. Ulcerative colitis. 5. Anemia. 6. Recent steroid use. RECOMMENDATIONS: At this point in time, I have discussed findings and details with Dr. Antonio. At this point, we will repack the left-sided wound with saline moist gauze. I think once we get some granulation and we are not in direct contact subcutaneously with the end-colostomy, I think a wound VAC would be a consideration here. We will continue with the wicking iodoform gauze to the incision line of the anterior abdominal wall with a dry gauze and ABD changed at least daily and as needed. She will need nutritional support. She has an NG tube in place at this time, possible consideration of parenteral nutrition would be a consideration. I have discussed findings and plan of care with both the [address] [place] [address] CONSULTATION Name: MONI DAVID Room #: 242-P ADM IN [place].#: [id number] Admission: 04/18/21 Attend Phys: Isac Antonio MD Discharge: Date of : 66 Report #: [id number] patient and her at the bedside as well as with Dr. Antonio. I appreciate being asked to see her in consultation. <ELECTRONICALLY SIGNED> By: Rodo Mcduffie MD 05/02/21 1804 [id number] Rodo Mcduffie MD /nt
[2021-05-03] VITALS (16 sets, daily range): BP systolic 111–133; BP diastolic 69–92
[2021-05-03 16:10] LABS: CALCIUM 8.6 mg/dL (8.5-10.1); CREATININE 0.5 mg/dL (0.6-1.0); MAGNESIUM 1.8 mg/dL (1.8-2.4); PHOSPHORUS 3.2 mg/dL (2.5-4.9); POTASSIUM 3.7 mmol/L (3.5-5.1)
[2021-05-04] VITALS (7 sets, daily range): BP systolic 114–128; BP diastolic 48–82
[2021-05-04 05:27] LABS: HEMATOCRIT 26.7 % (37.0-47.0); HEMOGLOBIN 8.7 gm/dL (12.0-15.0); MCH 26.3 pg (26.0-34.0); MCHC 32.5 g/dL (28.0-37.0); MCV 81.1 fL (80.0-100.0); RBC 3.29 mil/uL (4.20-5.00); RDW 15.1 % (10.5-14.5); WBC 15.2 thou/uL (4.0-11.0)
[2021-05-04 05:51] LABS: ALBUMIN 1.4 g/dL (3.4-5.0); CALCIUM 8.5 mg/dL (8.5-10.1); CREATININE 0.4 mg/dL (0.6-1.0); MAGNESIUM 1.8 mg/dL (1.8-2.4); POTASSIUM 3.6 mmol/L (3.5-5.1); TOTAL BILIRUBIN 0.5 mg/dL (0.2-1.0); TOTAL PROTEIN 5.6 g/dL (6.4-8.2)
[2021-05-05 00:05] VITALS: BP 129/77
[2021-05-05 04:47] VITALS: BP 121/77
[2021-05-05 04:48] LABS: ALBUMIN 1.4 g/dL (3.4-5.0); CALCIUM 8.8 mg/dL (8.5-10.1); CREATININE 0.5 mg/dL (0.6-1.0); MAGNESIUM 1.8 mg/dL (1.8-2.4); POTASSIUM 3.4 mmol/L (3.5-5.1); TOTAL BILIRUBIN 0.5 mg/dL (0.2-1.0); TOTAL PROTEIN 5.8 g/dL (6.4-8.2)
[2021-05-05 08:43] VITALS: BP 106/67
[2021-05-05 16:51] VITALS: BP 137/84
[2021-05-05 20:55] VITALS: BP 125/85
[2021-05-06 04:45] VITALS: BP 140/87
[2021-05-06 04:48] LABS: HEMATOCRIT 24.4 % (37.0-47.0); HEMOGLOBIN 7.9 gm/dL (12.0-15.0); MCH 26.3 pg (26.0-34.0); MCHC 32.2 g/dL (28.0-37.0); MCV 81.7 fL (80.0-100.0); RBC 2.99 mil/uL (4.20-5.00); RDW 15.2 % (10.5-14.5); WBC 23.4 thou/uL (4.0-11.0)
[2021-05-06 05:04] LABS: ALBUMIN 1.3 g/dL (3.4-5.0); CALCIUM 8.5 mg/dL (8.5-10.1); CREATININE 0.5 mg/dL (0.6-1.0); MAGNESIUM 1.7 mg/dL (1.8-2.4); PHOSPHORUS 3.2 mg/dL (2.5-4.9); POTASSIUM 3.7 mmol/L (3.5-5.1)
[2021-05-06 07:40] VITALS: BP 127/73
[2021-05-06 12:35] VITALS: BP 133/88
[2021-05-06 15:47] VITALS: BP 125/78
[2021-05-06 19:52] VITALS: BP 121/67
[2021-05-06 20:41] LABS: URINE BILIRUBIN NEGATIVE (Negative); URINE BLOOD NEGATIVE (Negative); URINE CLARITY SL CLOUDY; URINE COLOR YELLOW; URINE GLUCOSE-RANDOM* NEGATIVE (Negative); URINE KETONES 1+ (Negative); URINE LEUKOCYTES-REFLEX NEGATIVE (Negative); URINE NITRITE-REFLEX NEGATIVE (Negative); URINE PROTEIN (DIPSTICK) NEGATIVE (Negative); URINE SPECIFIC GRAVITY 1.025 (1.005-1.035); URINE UROBILINOGEN 0.2 E.U./dl (0.2-1.0)
[2021-05-07 03:59] VITALS: BP 116/67
[2021-05-07 05:35] LABS: HEMATOCRIT 23.3 % (37.0-47.0); HEMOGLOBIN 7.4 gm/dL (12.0-15.0); MCH 26.1 pg (26.0-34.0); MCHC 31.6 g/dL (28.0-37.0); MCV 82.4 fL (80.0-100.0); RBC 2.83 mil/uL (4.20-5.00); RDW 15.7 % (10.5-14.5); WBC 23.5 thou/uL (4.0-11.0)
[2021-05-07 05:51] LABS: PLATELET COUNT 474 thou/uL (150-400)
[2021-05-07 06:27] LABS: ALBUMIN 1.2 g/dL (3.4-5.0); CALCIUM 8.3 mg/dL (8.5-10.1); CREATININE 0.5 mg/dL (0.6-1.0); MAGNESIUM 1.9 mg/dL (1.8-2.4); POTASSIUM 3.3 mmol/L (3.5-5.1); TOTAL BILIRUBIN 0.4 mg/dL (0.2-1.0); TOTAL PROTEIN 5.8 g/dL (6.4-8.2)
[2021-05-07 07:48] LABS: PLATELET ESTIMATE INCREASED
[2021-05-07 07:50] VITALS: BP 112/75
[2021-05-07 11:29] VITALS: BP 112/75
[2021-05-07 16:39] VITALS: BP 123/75
[2021-05-07 19:41] VITALS: BP 126/81
[2021-05-08 04:39] VITALS: BP 129/77
[2021-05-08 05:51] LABS: HEMATOCRIT 23.1 % (37.0-47.0); HEMOGLOBIN 7.3 gm/dL (12.0-15.0); MCHC 31.7 g/dL (28.0-37.0); MCV 82.1 fL (80.0-100.0); RBC 2.82 mil/uL (4.20-5.00); RDW 15.7 % (10.5-14.5); WBC 24.6 thou/uL (4.0-11.0)
[2021-05-08 06:38] LABS: ALBUMIN 1.3 g/dL (3.4-5.0); CALCIUM 8.4 mg/dL (8.5-10.1); CREATININE 0.5 mg/dL (0.6-1.0); PHOSPHORUS 3.3 mg/dL (2.5-4.9); POTASSIUM 4.1 mmol/L (3.5-5.1)
[2021-05-08 08:51] VITALS: BP 131/82
[2021-05-08 19:32] VITALS: BP 124/83
[2021-05-09 03:15] LABS: HEMOGLOBIN 6.7 gm/dL (12.0-15.0)
[2021-05-09 03:16] LABS: HEMATOCRIT 21.1 % (37.0-47.0); MCH 25.7 pg (26.0-34.0); MCHC 31.6 g/dL (28.0-37.0); MCV 81.1 fL (80.0-100.0); PLATELET COUNT 543 thou/uL (150-400); RDW 15.6 % (10.5-14.5); WBC 18.5 thou/uL (4.0-11.0)
[2021-05-09 03:20] LABS: ALBUMIN 1.3 g/dL (3.4-5.0); CREATININE 0.5 mg/dL (0.6-1.0); PHOSPHORUS 3.1 mg/dL (2.5-4.9)
[2021-05-09 03:28] LABS: POTASSIUM 3.1 mmol/L (3.5-5.1)
[2021-05-09 03:29] VITALS: BP 119/72
[2021-05-09 07:11] LABS: ABSOLUTE NEUTROPHILS 16.3 thou/uL (1.4-8.2); METAMYELOCYTES 2 %; PLATELET ESTIMATE INCREASED
[2021-05-09 07:12] LABS: ANISOCYTOSIS 1+; POIKILOCYTOSIS 1+; POLYCHROMASIA 1+; SCHISTOCYTES 1+
[2021-05-09 08:00] VITALS: BP 127/82
[2021-05-09 08:50] VITALS: BP 130/82; BP 135/81
[2021-05-09 11:04] VITALS: BP 122/78; BP 135/81; BP 141/91
[2021-05-09 14:51] LABS: HEMATOCRIT 26.5 % (37.0-47.0); HEMOGLOBIN 8.4 gm/dL (12.0-15.0)
[2021-05-09 16:00] VITALS: BP 135/93
[2021-05-09 19:17] VITALS: BP 139/91
[2021-05-10 03:48] VITALS: BP 118/80
[2021-05-10 06:41] LABS: HEMATOCRIT 23.3 % (37.0-47.0); HEMOGLOBIN 7.5 gm/dL (12.0-15.0); MCHC 32.1 g/dL (28.0-37.0); MCV 81.1 fL (80.0-100.0); RBC 2.87 mil/uL (4.20-5.00); RDW 14.9 % (10.5-14.5); WBC 14.1 thou/uL (4.0-11.0)
[2021-05-10 06:55] LABS: PLATELET COUNT 367 thou/uL (150-400)
[2021-05-10 07:06] LABS: ALBUMIN 1.1 g/dL (3.4-5.0); CALCIUM 6.8 mg/dL (8.5-10.1); CREATININE 0.7 mg/dL (0.6-1.0); PHOSPHORUS 2.4 mg/dL (2.6-4.7)
[2021-05-10 07:09] LABS: POTASSIUM 2.9 mmol/L (3.5-5.1)
[2021-05-10 07:43] VITALS: BP 129/83
[2021-05-10 11:18] LABS: ABSOLUTE NEUTROPHILS 12.7 thou/uL (1.4-8.2); ATYPICAL LYMPHS 2 %
[2021-05-10 11:19] LABS: ANISOCYTOSIS SLIGHT; OVALOCYTES OCCASIONAL; POIKILOCYTOSIS SLIGHT
[2021-05-10 12:40] VITALS: BP 136/86
--- NOTE | 2021-05-10 13:50 | HC ---
[facility] [place] [address] CONSULTATION Name: MONI DAVID Room #: 215-P ADM IN M.R.#: [id number] Admission: 04/18/21 Attend Phys: Isac Antonio MD Discharge: Date of : 66 Report #: [id number] THIS REPORT FOR: cc: Jeremy Moore MD, Christian C. MD Smithson, David G. MD ~ DATE OF SERVICE: 05/06/2021 HISTORY OF PRESENT ILLNESS: The patient is a 50-year-old white female with ulcerative colitis, heard a "pop" with severe abdominal pain, was admitted with perforated viscus, 04/18/2021. She underwent urgent surgery with partial resection and colostomy formation. She has had subsequent multiple procedures with surgical washout and her course has been complicated by septic shock with intubation in the ICU for several days. She was noted to have hypoxic respiratory failure. She has been followed by Cardiology with sinus tachycardia. She was on TPN and had an NG tube in for a while. She is now on full liquids. We are seeing her in Rehabilitation Medicine consultation. PAST MEDICAL HISTORY: Chronic migraine headaches. She had a prior outpatient cardiac evaluation with stress echocardiogram in 12/2020, which showed nonischemic changes. She is status post cholecystectomy and bilateral carpal tunnel release. PAST SURGICAL HISTORY: As noted above. MEDICATIONS: Please see the full medication listing. ALLERGIES: SHE HAS MULTIPLE ALLERGIES LISTED. SOCIAL HISTORY: She lives in a house with her , 2-3 steps in. No assistive devices. There are 2 adult children. works from home and is closely involved. She did not utilize any assistive device premorbidly. REVIEW OF SYSTEMS: No current complaints of chest pain, shortness of breath or abdominal discomfort. PHYSICAL EXAMINATION: GENERAL: A 50-year-old white female in no obvious distress. VITAL SIGNS: Last recorded temperature 36.9, pulse 109, respirations 18, blood pressure 127/73. She is alert, pleasant. HEENT: Appeared to be benign. NEUROLOGIC: Cranial nerves are grossly intact. She has functional range of motion of both upper extremities with strength probably a grade 3+ to 4-/5. DTRs are trace to 1. ABDOMEN: She has abdominal dressing in place with wound VAC. She has 2 drains on the right, one drain on the left. She has the left lower quadrant ostomy. [address] [address] CONSULTATION Name: JOANNMONI PLEITEZ Room #: 215-P [facility] IN .R.#: [id number] Admission: 04/18/21 Attend Phys: Isac Antonio MD Discharge: Date of : 66 Report #: [id number] EXTREMITIES: Lower extremities: There is no focal calf swelling. Strength is probably a grade 3+/5. Tone appeared to be intact. She is min assist, coming sit to stand. She has been able to take 2 steps basically a min assist 2 feet with a front-wheeled walker. ASSESSMENT: A 50-year-old white female with the following problem list: 1. Medical complexity with generalized debilitation. 2. Abdominal abscesses, status post exploratory laparotomy with I and D, left flank. Ulcerative colitis with perforated viscus. 3. Septic shock. 4. Hypoxic respiratory failure, warranting several days intubation in the ICU. 5. Protein-calorie malnutrition with anasarca. She is off the TPN and is on a full liquid diet. 6. Acute intestinal perforation as noted above. 7. Sepsis with acute fecal peritonitis. 8. Prior history of ulcerative colitis. 9. Chronic migraine headaches. PLAN: Physical therapy to continue working on improving her strength, endurance, and functional mobility. We will ask Occupational Therapy to reevaluate. Insurance issues will be checked in juan a regarding insurance precertification for an acute in-hospital inpatient rehabilitation stay. We have an acute inpatient rehabilitation [place] within the acute care hospital where the multiple sales consultant residential manager physicians could continue to follow and where the goal would be for her to further improve as far as strength, mobility, ADL independence as well as education regarding ostomy care and dressing changes, etc., for transition back to the home setting. She has a very supportive and appears motivated to further improve her overall functional independence. We will be glad to follow along with you regarding her rehab therapy needs. <ELECTRONICALLY SIGNED> By: Nitesh Delgado MD 05/10/21 1350 [id number] Ntiesh Delgado MD /nt
[2021-05-10 15:57] VITALS: BP 138/93
[2021-05-10 20:03] VITALS: BP 142/95
[2021-05-11 04:02] VITALS: BP 141/92
[2021-05-11 05:45] LABS: HEMATOCRIT 26.5 % (37.0-47.0); HEMOGLOBIN 8.5 gm/dL (12.0-15.0); MCHC 32.2 g/dL (28.0-37.0); MCV 80.6 fL (80.0-100.0); RBC 3.28 mil/uL (4.20-5.00); RDW 15.3 % (10.5-14.5); WBC 13.4 thou/uL (4.0-11.0)
[2021-05-11 06:06] LABS: ALBUMIN 1.2 g/dL (3.4-5.0); CALCIUM 8.4 mg/dL (8.5-10.1); CREATININE 0.4 mg/dL (0.6-1.0); MAGNESIUM 1.5 mg/dL (1.8-2.4); POTASSIUM 3.6 mmol/L (3.5-5.1); TOTAL BILIRUBIN 0.5 mg/dL (0.2-1.0)
[2021-05-11 08:00] VITALS: BP 144/92
[2021-05-11 12:00] VITALS: BP 129/83
[2021-05-11 16:30] VITALS: BP 134/92
[2021-05-11 20:15] VITALS: BP 138/81
[2021-05-12 04:45] VITALS: BP 132/84
[2021-05-12 05:50] LABS: CALCIUM 8.3 mg/dL (8.5-10.1); CREATININE 0.4 mg/dL (0.6-1.0); POTASSIUM 3.7 mmol/L (3.5-5.1)
[2021-05-12 07:40] VITALS: BP 136/78
[2021-05-12 11:30] VITALS: BP 135/79
[2021-05-12 15:50] VITALS: BP 126/81
[2021-05-12 19:52] VITALS: BP 118/73
[2021-05-13 04:00] VITALS: BP 122/78
[2021-05-13 07:00] LABS: ABSOLUTE NEUTROPHILS 9.7 thou/uL (1.4-8.2); BASOPHILS 0.7 % (0.0-2.0); EOSINOPHILS 1.8 % (0.0-3.0); HEMATOCRIT 25.8 % (37.0-47.0); HEMOGLOBIN 8.1 gm/dL (12.0-15.0); LYMPHOCYTES 5.3 % (24.0-44.0); MCH 25.7 pg (26.0-34.0); MCHC 31.4 g/dL (28.0-37.0); MCV 81.8 fL (80.0-100.0); POLYS 85.2 % (36.0-66.0); RBC 3.15 mil/uL (4.20-5.00); RDW 15.5 % (10.5-14.5); WBC 11.4 thou/uL (4.0-11.0)
[2021-05-13 07:14] LABS: PLATELET COUNT 507 thou/uL (150-400)
[2021-05-13 07:28] LABS: CALCIUM 8.4 mg/dL (8.5-10.1); CREATININE 0.5 mg/dL (0.6-1.0); POTASSIUM 3.4 mmol/L (3.5-5.1)
[2021-05-13 07:40] VITALS: BP 136/85
[2021-05-13 11:40] VITALS: BP 122/88
[2021-05-13 16:30] VITALS: BP 123/79
[2021-05-13 20:45] VITALS: BP 133/85
[2021-05-14 04:42] LABS: HEMATOCRIT 25.3 % (37.0-47.0); HEMOGLOBIN 8.4 gm/dL (12.0-15.0); MCH 27.1 pg (26.0-34.0); MCHC 33.3 g/dL (28.0-37.0); MCV 81.5 fL (80.0-100.0); RBC 3.1 mil/uL (4.20-5.00); RDW 15.5 % (10.5-14.5); WBC 10.8 thou/uL (4.0-11.0)
[2021-05-14 04:43] LABS: CALCIUM 8.5 mg/dL (8.5-10.1); CREATININE 0.5 mg/dL (0.6-1.0); MAGNESIUM 1.8 mg/dL (1.8-2.4); POTASSIUM 3.4 mmol/L (3.5-5.1)
[2021-05-14 04:45] VITALS: BP 112/78
[2021-05-14 07:30] VITALS: BP 114/75
[2021-05-14 12:00] VITALS: BP 102/64
[2021-05-14 16:00] VITALS: BP 118/72
[2021-05-14 19:53] VITALS: BP 137/74
[2021-05-15 00:05] VITALS: BP 102/61
[2021-05-15 08:00] VITALS: BP 118/69
[2021-05-15 12:00] VITALS: BP 105/64
[2021-05-15 16:30] VITALS: BP 116/74
[2021-05-15 19:03] VITALS: BP 97/81
[2021-05-15 23:16] VITALS: BP 127/73
[2021-05-16 03:50] VITALS: BP 119/70
[2021-05-16 05:17] LABS: BASOPHILS 0.8 % (0.0-2.0); EOSINOPHILS 2.2 % (0.0-3.0); HEMATOCRIT 27.3 % (37.0-47.0); HEMOGLOBIN 8.6 gm/dL (12.0-15.0); LYMPHOCYTES 7.6 % (24.0-44.0); MCHC 31.7 g/dL (28.0-37.0); MONOCYTES 9.1 % (1.0-8.0); POLYS 80.3 % (36.0-66.0); RBC 3.32 mil/uL (4.20-5.00); RDW 16.1 % (10.5-14.5); WBC 11.2 thou/uL (4.0-11.0)
[2021-05-16 05:43] LABS: MAGNESIUM 1.8 mg/dL (1.8-2.4)
[2021-05-16 05:45] LABS: PLATELET COUNT 720 thou/uL (150-400)
[2021-05-16 07:50] VITALS: BP 123/67
[2021-05-16 11:28] LABS: ALBUMIN 1.5 g/dL (3.4-5.0); CALCIUM 8.8 mg/dL (8.5-10.1); CREATININE 0.6 mg/dL (0.6-1.0); PHOSPHORUS 3.4 mg/dL (2.5-4.9)
[2021-05-16 11:40] VITALS: BP 122/67
[2021-05-16 16:00] VITALS: BP 114/76
[2021-05-16 19:48] VITALS: BP 114/75
[2021-05-17 05:32] VITALS: BP 122/85
[2021-05-17 07:58] VITALS: BP 113/73
[2021-05-17 11:15] VITALS: BP 114/71
[2021-05-17 15:30] VITALS: BP 95/60
[2021-05-17 20:15] VITALS: BP 108/67
[2021-05-18 01:06] LABS: HEPATITIS B SURFACE AG Negative (Negative)
[2021-05-18 04:45] VITALS: BP 104/65
[2021-05-18 07:35] VITALS: BP 112/69
[2021-05-18 11:22] VITALS: BP 100/67
[2021-05-18 15:26] VITALS: BP 101/60
[2021-05-18 20:15] VITALS: BP 109/69
[2021-05-19 04:45] VITALS: BP 118/75
[2021-05-19 08:15] VITALS: BP 107/64
[2021-05-19 11:14] VITALS: BP 112/71
[2021-05-19 15:25] VITALS: BP 101/59
[2021-05-19 20:15] VITALS: BP 119/63
[2021-05-20 04:45] VITALS: BP 103/60
[2021-05-20 06:51] LABS: ABSOLUTE NEUTROPHILS 3.4 thou/uL (1.4-8.2); BASOPHILS 1.1 % (0.0-2.0); EOSINOPHILS 4.5 % (0.0-3.0); HEMATOCRIT 23.5 % (37.0-47.0); HEMOGLOBIN 7.6 gm/dL (12.0-15.0); MCH 26.9 pg (26.0-34.0); MCHC 32.5 g/dL (28.0-37.0); MCV 82.8 fL (80.0-100.0); MONOCYTES 11.8 % (1.0-8.0); PLATELET COUNT 445 thou/uL (150-400); POLYS 70.6 % (36.0-66.0); RBC 2.84 mil/uL (4.20-5.00); RDW 17.1 % (10.5-14.5); WBC 4.8 thou/uL (4.0-11.0)
[2021-05-20 07:04] LABS: ALBUMIN 1.3 g/dL (3.4-5.0); CALCIUM 8.6 mg/dL (8.5-10.1); CREATININE 0.5 mg/dL (0.6-1.0); POTASSIUM 3.8 mmol/L (3.5-5.1); TOTAL BILIRUBIN 0.3 mg/dL (0.2-1.0); TOTAL PROTEIN 5.6 g/dL (6.4-8.2)
[2021-05-20 07:45] VITALS: BP 125/66
[2021-05-20 08:59] VITALS: BP 125/66
[2021-05-20 12:30] VITALS: BP 105/72
[2021-05-20] MEDS ORDERED: HYOSCYAMINE0.125 M1 PO (13:21)
[2021-05-20] MEDS ORDERED: SPIRONOLACTONE25 M1 PO (13:21)
[2021-05-20] MEDS ORDERED: OXYCODONE-APAP1 TAB PO (13:22)
[2021-05-20] MEDS ORDERED: NEURONTIN 300M300 M2 PO (13:27)
[2021-05-20] MEDS ORDERED: KLOR-CON M2020 MEQ PO (13:28)
[2021-05-20] MEDS ORDERED: XANAX 0.25 MG0.25 MG PO (13:28)
[2021-05-20] MEDS ORDERED: LASIX 40 MG TAB40 M2 PO (13:28)
[2021-05-20] MEDS ORDERED: COLACE 100 MG100 MG PO (13:29)
[2021-05-20] MEDS ORDERED: SIMETHICON CHEW80 M1 PO (13:29)
[2021-05-20] MEDS ORDERED: MIRALAX17 GM PO (13:30)
[2021-05-20] MEDS ORDERED: OXYCODONE HCL10 MG PO (13:33)
[2021-05-20 15:51] VITALS: BP 125/66
[2021-05-20 16:10] VITALS: BP 125/66
[2021-05-20] MEDS ORDERED: CIPROFLOXACIN500 M1 PO (18:02)
[2021-05-22 14:48] LABS: T-SPOT.TB Negative
[2021-05-25] MEDS ORDERED: PERCOCET 10-321 EAC1 PO (00:01)
== END 2021-05-20 19:08 | disposition home health service (06) | DRG 853 ==
LOC: ER 13:28 → 2N 15:20 → ICU 15:20 → EROBS 15:20 → TBA 15:22 → ICU 20:07 → 2N 04-23 00:28 → ICU 04-26 15:55 → 2N 05-03 16:14
PROVIDERS: Hospitalist; Internal Medicine; Internal Medicine Gastroenterology; Internal Medicine Pulmonary Disease; Nurse Practitioner; Pediatrics; Specialist; Student in an Organized Health Care Education/Training Program; ADMIT Internal Medicine; ATTEND Surgery
PROC: 0BH17EZ Insertion of Endotracheal Airway into Trachea, Via Natural or Artificial Opening (ICD-10-PCS; principal; 2021-04-18)
PROC: 5A1945Z Respiratory Ventilation, 24-96 Consecutive Hours (ICD-10-PCS; principal; 2021-04-18)
PROC: 0W9G4ZZ Drainage of Peritoneal Cavity, Percutaneous Endoscopic Approach (ICD-10-PCS; principal; 2021-04-18)
PROC: 0D1M4Z4 Bypass Descending Colon to Cutaneous, Percutaneous Endoscopic Approach (ICD-10-PCS; principal; 2021-04-18)
PROC: 0DNN4ZZ Release Sigmoid Colon, Percutaneous Endoscopic Approach (ICD-10-PCS; principal; 2021-04-18)
PROC: 0DBN4ZZ Excision of Sigmoid Colon, Percutaneous Endoscopic Approach (ICD-10-PCS; principal; 2021-04-18)
PROC: B548ZZA Ultrasonography of Superior Vena Cava, Guidance (ICD-10-PCS; 2021-04-19)
PROC: 02H633Z Insertion of Infusion Device into Right Atrium, Percutaneous Approach (ICD-10-PCS; 2021-04-19)
PROC: 0W9G30Z Drainage of Peritoneal Cavity with Drainage Device, Percutaneous Approach (ICD-10-PCS; 2021-04-24)
PROC: 0W9G0ZZ Drainage of Peritoneal Cavity, Open Approach (ICD-10-PCS; 2021-04-26)
PROC: 5A1945Z Respiratory Ventilation, 24-96 Consecutive Hours (ICD-10-PCS; 2021-04-26)
PROC: 0W9G00Z Drainage of Peritoneal Cavity with Drainage Device, Open Approach (ICD-10-PCS; 2021-04-28)
PROC: 30233N1 Transfusion of Nonautologous Red Blood Cells into Peripheral Vein, Percutaneous Approach (ICD-10-PCS; 2021-05-09)
DX: A41.9 Sepsis, unspecified organism (principal); K63.1 Perforation of intestine (nontraumatic); K65.8 Other peritonitis; G92.8 Other toxic encephalopathy; R65.21 Severe sepsis with septic shock; J96.01 Acute respiratory failure with hypoxia; E43 Unspecified severe protein-calorie malnutrition; M72.6 Necrotizing fasciitis; K65.1 Peritoneal abscess; T81.43XA Infection following a procedure, organ and space surgical site, initial encounter; L03.311 Cellulitis of abdominal wall; J90 Pleural effusion, not elsewhere classified; K51.90 Ulcerative colitis, unspecified, without complications; K56.609 Unspecified intestinal obstruction, unspecified as to partial versus complete obstruction; E87.6 Hypokalemia; E83.39 Other disorders of phosphorus metabolism; K66.8 Other specified disorders of peritoneum; F41.1 Generalized anxiety disorder; E66.01 Morbid (severe) obesity due to excess calories; R00.0 Tachycardia, unspecified; B96.5 Pseudomonas (aeruginosa) (mallei) (pseudomallei) as the cause of diseases classified elsewhere; B95.2 Enterococcus as the cause of diseases classified elsewhere; B96.20 Unspecified Escherichia coli [E. coli] as the cause of diseases classified elsewhere; D69.6 Thrombocytopenia, unspecified; E16.2 Hypoglycemia, unspecified; I95.9 Hypotension, unspecified; Y83.8 Other surgical procedures as the cause of abnormal reaction of the patient, or of later complication, without mention of misadventure at the time of the procedure; R10.0 Acute abdomen; D64.9 Anemia, unspecified; R53.81 Other malaise; G43.909 Migraine, unspecified, not intractable, without status migrainosus; Z28.21 Immunization not carried out because of patient refusal; Z90.49 Acquired absence of other specified parts of digestive tract; Z79.899 Other long term (current) drug therapy; Z88.1 Allergy status to other antibiotic agents; Z88.5 Allergy status to narcotic agent; Z88.7 Allergy status to serum and vaccine; Z90.710 Acquired absence of both cervix and uterus; Z88.8 Allergy status to other drugs, medicaments and biological substances; Z68.33 Body mass index [BMI] 33.0-33.9, adult; Y92.89 Other specified places as the place of occurrence of the external cause; Z84.89 Family history of other specified conditions
CPT/HCPCS: 10078; 10081; 27000; 50101; 50331; 50386; 50411; 50455; 50525; 50555; 50643; 50820; 51114; 51412; 52265; 53078; 53307; 53310; 54022; 54118; 55245; 56525; 56526; 56528; 56529; 57092; 57103; 58574; 58586; 58869; 58872; 58911; 58984; 62110; 62900; 65020; 65040; 70005; 83006

== ENCOUNTER → 2021-05-27 | Outpatient (CLI) | payer BC ==
[~2021-05-27] MED LIST changes: +CIPROFLOXACIN500 M1 PO; +COLACE 100 MG100 MG PO; +HYOSCYAMINE0.125 M1 PO; +KLOR-CON M2020 MEQ PO; +LASIX 40 MG TAB40 M2 PO; +MIRALAX17 GM PO; +NEURONTIN 300M300 M2 PO; +OXYCODONE HCL10 MG PO; +OXYCODONE-APAP1 TAB PO; +PERCOCET 10-321 EAC1 PO; +SIMETHICON CHEW80 M1 PO; +SPIRONOLACTONE25 M1 PO; +TORADOL 10 MG T10 MG PO; +XANAX 0.25 MG0.25 MG PO
== END ==
LOC: HYPER 07:48
PROVIDERS: ATTEND Emergency Medicine Emergency Medical Services
DX: T81.31XA Disruption of external operation (surgical) wound, not elsewhere classified, initial encounter (principal); L98.492 Non-pressure chronic ulcer of skin of other sites with fat layer exposed; K51.918 Ulcerative colitis, unspecified with other complication; Z93.3 Colostomy status; Z79.52 Long term (current) use of systemic steroids; Z90.710 Acquired absence of both cervix and uterus; Z98.890 Other specified postprocedural states; Z79.899 Other long term (current) drug therapy; Y83.8 Other surgical procedures as the cause of abnormal reaction of the patient, or of later complication, without mention of misadventure at the time of the procedure; Y92.238 Other place in hospital as the place of occurrence of the external cause

== ENCOUNTER 2021-05-28 09:59 | Inpatient (IN) | payer BC ==
[~2021-05-28] VITALS: Ht 165.1 cm; Wt 83.8 kg
[~2021-05-28 09:59] MED LIST changes: -TORADOL 10 MG T10 MG PO
[2021-05-28 10:01] VITALS: BP 84/54
[2021-05-28 10:35] LABS: MCH 25.8 pg (26.0-34.0)
[2021-05-28 10:36] LABS: HEMATOCRIT 25.2 % (37.0-47.0); HEMOGLOBIN 8.2 gm/dL (12.0-15.0); MCHC 32.5 g/dL (28.0-37.0); MCV 79.4 fL (80.0-100.0); PLATELET COUNT 376 thou/uL (150-400); RBC 3.17 mil/uL (4.20-5.00); RDW 16.9 % (10.5-14.5)
[2021-05-28 10:50] LABS: CALCIUM 8.6 mg/dL (8.5-10.1); CREATININE 0.7 mg/dL (0.6-1.0); POTASSIUM 3.6 mmol/L (3.5-5.1)
[2021-05-28 10:55] LABS: ALBUMIN 1.7 g/dL (3.4-5.0); TOTAL BILIRUBIN 0.3 mg/dL (0.2-1.0); TOTAL PROTEIN 6.5 g/dL (6.4-8.2)
--- NOTE | 2021-05-28 11:20 | NUR ---
Pt to ct at this time
--- NOTE | 2021-05-28 11:42 | NUR ---
pt back from ct
[2021-05-28 11:46] LABS: ABSOLUTE NEUTROPHILS 5.5 thou/uL (1.4-8.2)
[2021-05-28 11:47] LABS: ANISOCYTOSIS 1+; PLATELET ESTIMATE NORMAL
--- NOTE | 2021-05-28 17:46 | NUR ---
Chart reviewed and case discussed with the care team. Pt known to cm from recent dc to home on 05/20/21 after a length hospital course. She had HH services per [facility], iv atb per [facility], [facility] wound Vac, ostomy supplies per juan, and a rwalker per provider plus. 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 She readmitted today and is covid+ on 2liters of O2. She had been on room air at dc last week. ID,wound care, surgery have been consulted. Dc timeframe and needs are uncertain at this time. Will follow along for resumption of hh.
[2021-05-28 23:00] VITALS: BP 117/81
[2021-05-29] MEDS ORDERED: TORADOL 10 MG T10 MG PO (00:20)
[2021-05-29 03:20] VITALS: BP 121/84
[2021-05-29 04:31] LABS: ABSOLUTE NEUTROPHILS 4.3 thou/uL (1.4-8.2); BASOPHILS 0.5 % (0.0-2.0); EOSINOPHILS 0.2 % (0.0-3.0); HEMATOCRIT 25.2 % (37.0-47.0); HEMOGLOBIN 8.2 gm/dL (12.0-15.0); LYMPHOCYTES 14.1 % (24.0-44.0); MCHC 32.6 g/dL (28.0-37.0); MCV 79.7 fL (80.0-100.0); PLATELET COUNT 408 thou/uL (150-400); POLYS 74.2 % (36.0-66.0); RBC 3.16 mil/uL (4.20-5.00); RDW 16.7 % (10.5-14.5); WBC 5.7 thou/uL (4.0-11.0)
[2021-05-29 04:34] LABS: URINE BILIRUBIN NEGATIVE (Negative); URINE BLOOD NEGATIVE (Negative); URINE CLARITY CLEAR; URINE COLOR YELLOW; URINE GLUCOSE-RANDOM* NEGATIVE (Negative); URINE KETONES NEGATIVE (Negative); URINE LEUKOCYTES-REFLEX NEGATIVE (Negative); URINE NITRITE-REFLEX NEGATIVE (Negative); URINE PROTEIN (DIPSTICK) TRACE (Negative); URINE SPECIFIC GRAVITY 1.015 (1.005-1.035); URINE UROBILINOGEN 0.2 E.U./dl (0.2-1.0)
--- NOTE | 2021-05-29 04:35 | NUR ---
Arrived from ER around 2244.O2 at 4L/NC with O2 sat in the mid to upper 90's. Verbalized concern that her O2 sat might drop once she starts sleeping and not know it.RT called , cont. sat monitor in place.Also provided IS and encouraged to use it. Cont. on isolation and she has been afebrile. Abdominal incision to wound vac. ARMANI drains x3 intact. Colostomy intact with soft bm.Requested pain med , oxycodone given with some relief of abd pain. Simethicone and zofran also given for gas and nausea with some relief. MRSA swab sent. Urine specimen sent to lab. She stated she slept some. Voided per commode.
[2021-05-29 05:39] LABS: ALBUMIN 1.8 g/dL (3.4-5.0); CALCIUM 8.8 mg/dL (8.5-10.1); CREATININE 0.5 mg/dL (0.6-1.0); POTASSIUM 3.8 mmol/L (3.5-5.1); TOTAL BILIRUBIN 0.3 mg/dL (0.2-1.0); TOTAL PROTEIN 6.7 g/dL (6.4-8.2)
[2021-05-29 07:15] VITALS: BP 112/79
--- NOTE | 2021-05-29 13:49 | NUR ---
TIM reviewed chart and spoke with nursing and attending physician. Pt remains in Enhanced Isolation due to COVID. Pt is afebrile and on 4L of O2. PT is on IV meds and Remdesivir. Therapy evals ordered. TIM discussed case with 5N animal rehabilitator. 5N to follow to see if a consult is appropriate pending pt's medical stability. TIM is following to assist as needed with discharge planning.
[2021-05-29 15:43] VITALS: BP 115/80
--- NOTE | 2021-05-29 16:38 | NUR ---
RN ASSUMED PT'S CARE AT 0700AM, PT IS A&OX4, PT IS ON O2 4L/MIN/NC, PT'S O2SAT STAY AT 92-96%, PT'S VS ARE STABLE, PT IS CONTINUING IV ABX, TREAT COVID MEDICATIONS . WOUND CARE AND PAIN MANAGEMENT, PT'S PAIN HAS CONTROLED, WE ARE CONTINUING TO MONITOR PT.
--- NOTE | 2021-05-29 16:42 | NUR ---
PT'S ABD 3 J-P TUBES HAVE REMOVED BY WOUND TEAM , SURGICAL DR IS OK TO DC J-P TUBES.
[2021-05-29 18:52] VITALS: BP 93/85
--- NOTE | 2021-05-30 03:35 | NUR ---
PROGRESS PT A/O X4. UP WITH SBA D/T EQUIPMENT. VOIDING QS. RATING PAIN TO ABDOMEN AN 8 OUT OF 0/10 AND TAKING OXYCODONE WITH EFFECT. WOUND VAC IN PLACE NO LEAKS NOTED SUCTION AT 125 CM. NO DRAINAGE NOTED. PICC LINE TO KATHY INTACT HAS GOOD BLOOD RETURN BOTH PORTS AND FLUSHES WITHOUT DIFFICULTY. LUNGS SOUNDS CLEAR IN UPPER LOBES AND SOME CRACKLES NOTED IN LOWER LOBES. ON 4 LITERS O2 VIA NC. CONTINUOUS PULSE OX IN PLACE SATS AT 94 AND ABOVE. COLOSTOMY WITH SOFT BROWN STOOL. ANTIBIOTICS ADMINISTERED ORDERED VANCO TROUGH 25 AND RE-DOSED BY PHARMACY. CONTINUE TO MONITOR.
[2021-05-30 04:04] VITALS: BP 125/99
[2021-05-30 07:05] LABS: HEMATOCRIT 24.8 % (37.0-47.0); HEMOGLOBIN 7.9 gm/dL (12.0-15.0); MCH 25.6 pg (26.0-34.0); MCHC 31.9 g/dL (28.0-37.0); MCV 80.2 fL (80.0-100.0); RBC 3.09 mil/uL (4.20-5.00); RDW 17.1 % (10.5-14.5); WBC 4.4 thou/uL (4.0-11.0)
[2021-05-30 07:11] LABS: CALCIUM 8.2 mg/dL (8.5-10.1); CREATININE 0.5 mg/dL (0.6-1.0); POTASSIUM 3.4 mmol/L (3.5-5.1)
[2021-05-30 07:30] VITALS: BP 115/69
[2021-05-30 08:12] LABS: HIV ANTIBODY Non Reactive (Non Reactive)
--- NOTE | 2021-05-30 09:42 | NUR ---
LATE NOTE: CONSULT [id number] WAS COMPLETED BY FR. HEIN ON 05/29/21. NOTATION BY CHAPLAIN LUKE
--- NOTE | 2021-05-30 13:50 | NUR ---
TIM reviewed chart and spoke with nursing and attending physician. Pt remains in Enhanced Isolation due to COVID. Pt is afebrile and on 4L of O2. Pt is on IV meds and Remdesivir. ARMANI drains were removed yesterday. Wound vac in place. TIM spoke with pt via phone. Introduced role of SW. Pt is alert/orientated x 4. Pt reports she lives at home with her family. Pt confirms her plan is to return home and resume HH services with [facility]. Pt's was on speaker phone with pt during SW call. Contact info for SW provided to both pt and spouse. TIM left voice message for [facility]. TIM is following to assist as needed with discharge planning.
[2021-05-30 15:30] VITALS: BP 108/76
--- NOTE | 2021-05-30 15:33 | NUR ---
assumed care of pt at 0700. pt aox4 no acute distress. wound vac in place. 4L NC. up w/ sba. abx infusing per order. pain controlled with med regimen. calls out appropriately. vitals stable. wcm.
[2021-05-30 20:00] VITALS: BP 101/66
--- NOTE | 2021-05-30 22:57 | HC ---
[facility] [place] [address] CONSULTATION Name: MONI DAVID Room #: 350-P ADM IN M.R.#: [id number] Admission: 05/28/21 Attend Phys: Sean Hampton MD Discharge: Date of : 66 Report #: [id number] THIS REPORT FOR: cc: Jeremy Moore MD, Christian C. MD Geha, Daniel J. MD ~ DATE OF SERVICE: 05/28/2021 REASON FOR CONSULTATION: I was asked to evaluate concerning COVID-19 pneumonia in the setting of peritonitis. HISTORY OF PRESENT ILLNESS: The patient is a 50-year-old who I saw initially on 04/25/2021 where she had ulcerative colitis with bowel perforation, septic shock, peritonitis requiring second look procedure, prolonged hospital stay with ICU stay as well. Placed on broad antibiotic coverage. Ultimately improved to be discharged home on 05/20/2021. Fecal peritonitis following ulcerative colitis and stercoral ulcer from a stricture resulting in sigmoid perforation. She had a persistent leukocytosis. She had multiple intraabdominal abscesses that were drained. She also had bilateral pleural effusions that were tapped. She did discharge home on vancomycin, meropenem and ciprofloxacin. Plan was for several weeks of IV antibiotic therapy with imaging studies to ensure abscesses have resolved, then begin biologic agent to help control her inflammatory bowel disease. Following discharge, the patient developed more shortness of breath at home and oxygen saturation dropped into the 70s. She was therefore transferred back to the Emergency Room where now she is on 2 liters of oxygen per nasal cannula. She has had minimal cough or sputum production. She has been short of breath. ARMANI drains have been putting out serous fluid. She has a wound VAC to her left flank region. She has had stool out of her ostomy. Reasonable urine output. No headache, loss of taste or smell. No myalgias or arthralgias. She has denied any fever. She has been previously COVID vaccinated. No known COVID exposure. ALLERGIES: AZITHROMYCIN, VERSED, MORPHINE, TETANUS TOXOID. MEDICATIONS: As noted on her AUG, having been started on steroids, remdesivir and continued on her IV antibiotic therapy including vancomycin, meropenem and ciprofloxacin. PAST MEDICAL HISTORY: Ulcerative colitis, bilateral carpal tunnel syndrome, cholecystectomy, hysterectomy, left eye cyst. FAMILY HISTORY: Negative for tuberculosis. 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 REVIEW OF SYSTEMS: A 14-point review of system was negative other [place] [address] CONSULTATION Name: MONI DAVID Room #: 350-[facility] IN ..#: [id number] Admission: 05/28/21 Attend Phys: Sean Hampton MD Discharge: Date of : 66 Report #: [id number] been described above. PHYSICAL EXAMINATION: GENERAL: She was afebrile and hemodynamically stable. She is on 2 liters of oxygen per nasal cannula. Alert, cooperative. Generalized fatigue. SKIN: Without rash or decubitus. No palpable adenopathy. HEENT: Eyes without scleral icterus and mouth without mucositis. NECK: Supple. LUNGS: Decreased breath sounds in the left base posteriorly. HEART: Regular without murmur, gallop or rub. ABDOMEN: Soft, minimally tender, although she had multiple drains in place. Left abdomen wound VAC in place, midline incision was well approximated with minimal drainage. Her ostomy mucosa was pink. GENITORECTAL: Not performed. EXTREMITIES: Without clubbing, cyanosis or edema. Right upper extremity PICC site without drainage or erythema. LABORATORY DATA: Reviewed. MICROBIOLOGY: Reviewed. IMAGING: CT scan of the chest, abdomen and pelvis reviewed. IMPRESSION: A 50-year-old status post multiple laparotomy procedures for fecal peritonitis and colon perforation in the setting of ulcerative colitis. The patient now has COVID-19 pneumonia with bilateral interstitial infiltrates and hypoxia. RECOMMENDATION: We will continue with corticosteroids and remdesivir. Plan on short course of steroids in the setting of treatment for fecal peritonitis. She will be monitored for further complications. Definitely is at high risk for further respiratory issues. She will have serial laboratory studies. May well need to drain the left pleural effusion. <ELECTRONICALLY SIGNED> By: Winston Serna MD 05/30/21 [id number] Winston Serna MD /nt
--- NOTE | 2021-05-31 00:23 | NUR ---
PROGRESS PT A/O X4. LUNGS CLEAR FREQUENT DRY COUGH NOTED. VSS, AFEBRILE PT REPORTS SHE FEELS MUCH BETTER TODAY. TRIPLE LUMEN PICC TO RYA FLUSHED WITHOUT DIFFICULTY WITH GOOD BLOOD RETURN. WOUND VAC INTACT TO LOWER ABDOMEN DRAPE FLAT AND SMOOTH GRANUFOAM COMPRESSED NO S/S OF LEAKS NOTED. COLOSTOMY WITH BROWN LIQUID STOOL EMPTIED SITE W/O S/S OF INFECTION NOTED. UP AD LILIANA TO BSC VOIDING QS. RATING PAIN A 7 TO 8 THIS SHIFT TAKING OXYCODONE Q6HRS WITH SOME EFFECT. PT ICING ABDOMINAL WOUND WITH REPORTS OF SOME PAIN RELIEF, IV ANTIBIOTICS ADMINISTERED ORDERED. CONTINUE POC.
[2021-05-31 03:42] VITALS: BP 123/83
[2021-05-31 05:57] LABS: ABSOLUTE NEUTROPHILS 4.6 thou/uL (1.4-8.2); BASOPHILS 0.2 % (0.0-2.0); EOSINOPHILS 0.2 % (0.0-3.0); HEMATOCRIT 24.3 % (37.0-47.0); LYMPHOCYTES 9.7 % (24.0-44.0); MCH 26.4 pg (26.0-34.0); MCV 80.1 fL (80.0-100.0); MONOCYTES 11.4 % (1.0-8.0); PLATELET COUNT 464 thou/uL (150-400); POLYS 78.5 % (36.0-66.0); RBC 3.04 mil/uL (4.20-5.00); RDW 17.2 % (10.5-14.5); WBC 5.9 thou/uL (4.0-11.0)
[2021-05-31 06:17] LABS: ALBUMIN 1.7 g/dL (3.4-5.0); CALCIUM 8.4 mg/dL (8.5-10.1); CREATININE 0.7 mg/dL (0.6-1.0); POTASSIUM 3.6 mmol/L (3.5-5.1); TOTAL BILIRUBIN 0.6 mg/dL (0.2-1.0); TOTAL PROTEIN 6.2 g/dL (6.4-8.2)
[2021-05-31 07:32] VITALS: BP 113/83
--- NOTE | 2021-05-31 12:43 | NUR ---
TIM reviewed chart and spoke with nursing and attending physician. Pt remains in Enhanced Isolation due to COVID. Pt is afebrile and on 8L of O2. Pt is on IV meds and Remdesivir. Wound vac intact. No weekend discharge planned. TIM received call from Wanda in intake at [facility]. Update provided. [facility] will need info faxed with d/c ppwk when pt is ready to discharge. TIM is following to assist as needed with discharge planning.
[2021-05-31 15:53] VITALS: BP 108/69
[2021-05-31 19:52] VITALS: BP 112/77
[2021-06-01 04:27] VITALS: BP 117/71
[2021-06-01 05:51] LABS: ABSOLUTE NEUTROPHILS 5.9 thou/uL (1.4-8.2); BASOPHILS 0.4 % (0.0-2.0); EOSINOPHILS 2.3 % (0.0-3.0); HEMATOCRIT 25.6 % (37.0-47.0); HEMOGLOBIN 8.1 gm/dL (12.0-15.0); LYMPHOCYTES 7.8 % (24.0-44.0); MCH 25.5 pg (26.0-34.0); MCHC 31.8 g/dL (28.0-37.0); MCV 80.1 fL (80.0-100.0); MONOCYTES 9.4 % (1.0-8.0); PLATELET COUNT 460 thou/uL (150-400); POLYS 80.1 % (36.0-66.0); RBC 3.19 mil/uL (4.20-5.00); RDW 17.4 % (10.5-14.5); WBC 7.3 thou/uL (4.0-11.0)
[2021-06-01 06:07] LABS: ALBUMIN 1.6 g/dL (3.4-5.0); CALCIUM 8.4 mg/dL (8.5-10.1); CREATININE 0.6 mg/dL (0.6-1.0); DIRECT BILIRUBIN 0.1 mg/dL (<0.1-0.2); POTASSIUM 3.3 mmol/L (3.5-5.1); TOTAL BILIRUBIN 0.4 mg/dL (0.2-1.0); TOTAL PROTEIN 5.6 g/dL (6.4-8.2)
[2021-06-01 07:02] VITALS: BP 96/63
--- NOTE | 2021-06-01 11:01 | HC ---
[facility] [place] [address] CONSULTATION Name: MONI DAVID Room #: 350-P ADM IN M.R.#: [id number] Admission: 05/28/21 Attend Phys: Sean Hampton MD Discharge: Date of : 66 Report #: [id number] THIS REPORT FOR: cc: Jeremy Moore MD, Christian C. MD Althoff, Jeffrey R. MD ~ DATE OF SERVICE: 05/29/2021 CHIEF COMPLAINT: Surgical wound to the abdominal wall. HISTORY OF PRESENT ILLNESS: This is a 50-year-old female patient with whom I am familiar from both inpatient and outpatient evaluation. She has a history of ulcerative colitis with a stricture and suffered a perforation, has undergone multiple abdominal surgeries in the midline. She has a residual surgical wound to the left lateral abdomen/flank area as well as a small ulceration in the peristomal region and a midline surgical incision, all of which have been gradually improving. She has had increasing oxygen demand and was admitted for possible COVID pneumonia. I have been asked to see her with regard to continuing wound care. PAST MEDICAL HISTORY: Includes previous hysterectomy, previous cholecystectomy, status post recent abdominal washout, exploratory laparotomy, status post Desirae's procedure, and ongoing surgical wound. CURRENT MEDICATIONS: Include acetaminophen, Xanax, Cipro, Colace, gabapentin, ketorolac, Bystolic, ondansetron, oxycodone, pantoprazole, spironolactone. ALLERGIES: TETANUS VACCINE AND TOXOID, INHALED ANESTHETICS, MORPHINE, AZITHROMYCIN, MIDAZOLAM, AND SUCCINYLCHOLINE. FAMILY HISTORY: Noncontributory. SOCIAL HISTORY: Positive for occasional alcohol consumption. No history of tobacco use. REVIEW OF SYSTEMS: CONSTITUTIONAL: The patient denies fever, chills or weight loss. NEUROLOGICAL: The patient denies focal weakness, numbness, tingling. EYES: The patient denies visual changes, redness or drainage. ENT: The patient denies earache, nasal drainage, or sore throat. CARDIOVASCULAR: The patient denies chest pain, palpitations, or diaphoresis. PULMONARY: Denies cough, shortness of breath. GASTROINTESTINAL: The patient does have some mild abdominal discomfort. Denies vomiting or diarrhea. Currently, she has a colostomy present. GENITOURINARY: The patient has frequency of urine. Denies dysuria. ORTHOPEDIC: The patient has pain and swelling of extremities. [address] [address] CONSULTATION Name: MONI DAVID Room #: 350-P [facility] IN ..#: [id number] Admission: 05/28/21 Attend Phys: Sean Hampton MD Discharge: Date of : 66 Report #: [id number] Others systems in a 14-point review of systems are negative. PHYSICAL EXAMINATION: VITAL SIGNS: The patient's vital at this time include temperature of 36.7, pulse 93, respiratory rate of 20, blood pressure 112/79. GENERAL: This is a somewhat chronically ill-appearing female patient, who appears to be in minimal distress. HEENT: Head normocephalic. Nose and throat clear. NECK: Supple. LUNGS: Diminished. HEART: Regular rhythm. ABDOMEN: Obese, soft, nontender. The ARMANI drains have minimal output, all of which I removed at the bedside today, which she tolerated well. The midline surgical incision appears to be healing well. [place] remain in place. There is a very small area of separation in the very center of this incision line, but it is much smaller than it was 2 weeks ago. The peristomal ulceration/wound is also improved and clean and granulating and the stoma appears to be healthy, pink and functioning. The wound on the lateral left abdominal wall also improved, healthy, clean, granulating and much less undermining, no evidence of infection. NEUROLOGIC: The patient is alert and oriented, moving all 4 extremities spontaneously. LABORATORY DATA: Include sodium 137, potassium 3.8, chloride 102, CO2 of 26, BUN 7, creatinine 0.5, glucose of 90, lactic acid is 1.4, albumin is 1.8. White blood cell count 5.7 with a hemoglobin of 8.2. COVID serology is positive. CLINICAL IMPRESSION: 1. Surgical incision in the midline, status post exploratory laparotomy, much improved. 2. Desirae's and colostomy. 3. Surgical wound to the left lateral abdominal wall/flank area. 4. History of chronic migraines. 5. She has morbid obesity. 6. Severe protein-calorie malnutrition. Albumin is improving, now at 1.8 up from 1.4. RECOMMENDATIONS: At this point in time, I have removed all of the ARMANI drains. We will continue to pack the midline surgical incision line with 1/4-inch iodoform gauze. We will recommend I wound VAC with black foam 100 mmHg for the lateral abdominal wall in the peristomal site. Continue with VAC along the incision line as well. The patient is agreeable to current plan of care. I have also discussed this with Dr. Antonio who is also currently in agreement with current plan of care. The wound VAC has been replaced at the bedside today. [address] [address] CONSULTATION Name: MONI DAVID Room #: 350-P ADM IN M.R.#: [id number] Admission: 05/28/21 Attend Phys: Sean Hampton MD Discharge: Date of : 66 Report #: [id number] I appreciate being asked to see her in consultation. <ELECTRONICALLY SIGNED> By: Rodo Mcduffie MD 06/01/21 1101 [id number] Rodo Mcduffie MD /nt
--- NOTE | 2021-06-01 16:05 | NUR ---
RN ASSUMED PT'S CARE AT 0700AM, PT IS A&OX4, PT IS ON O2 1-2L/MIN/NC, PT'S O2SAT STAY AT 92-96%, PT 'S VS ARE STABLE, PT IS CONTINUING IV ABX, TREAT COVID MEDICATIONS, WOUND CARE AND PAIN MANAGEMENT , PT'S ABD PAIN HAS CONTROLED, PT GETS UP TO BSC WITHOUT ASSIST, PT'S ABD WOUND VAC IS WORKING AT -125MMHG, PT IS RELAXING NOW.
[2021-06-01 16:08] VITALS: BP 100/66
[2021-06-01 20:55] VITALS: BP 109/74
[2021-06-02 03:12] LABS: CALCIUM 8.3 mg/dL (8.5-10.1); CREATININE 0.4 mg/dL (0.6-1.0); MAGNESIUM 1.3 mg/dL (1.8-2.4)
--- NOTE | 2021-06-02 04:17 | NUR ---
PT ALERT & ORIENTED X 4 AND IS CALM & COOPERATIVE. PT HAD [place] C/O OF PAIN. ADMINISTERED PAIN MEDS PRN AND ASSISTED PT IN REPOSITIONING. ABDOMINAL WOUND VAC INTACT AND WORKING-PRESSURE SET AT 125MMHG. VSS AFEBRILE. MG LAB THIS MORNING WAS LOW AT 1.3. 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 IV ABX ADMINISTERED. PT IS ABLE TO MAKE NEEDS KNOWN. CONTINUE WITH PLAN OF CARE.
[2021-06-02 04:55] VITALS: BP 97/66
[2021-06-02 07:52] VITALS: BP 98/60
[2021-06-02 15:12] VITALS: BP 100/68
--- NOTE | 2021-06-02 15:25 | NUR ---
0700 received report from night nurse. M/S patient; no TELE, no Accu checks. A&O x4, 1L NC, lungs clear, BSC, SCD's, COVID + on 05/28, ISOLATION. Double lumen PICC to Right upper arm. Wound vac in place to abd, suction set at 125 mmHg. Mag and Potassium reported, on replacement for Mag. Pain mgt with oxy and dilaudid. Pt requests to have oxy brought in every 6 hours, to control pain, at 11/24/. Consults in for PT/OT/pulmonology/ID/wound. 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 Plan is to go home on IV ABX. possible DC by Thursday, pt not aware. pt would like to stay to get a couple more dressing changes with wound care prior to discharge. Dressing changes scheduled for MWF, with a wound vac change yesterday.
--- NOTE | 2021-06-02 16:42 | NUR ---
order to redraw Mag and K in AM from Dr. Cabrera; NURSE DRAW
[2021-06-02 18:55] VITALS: BP 112/75
[2021-06-03 03:41] VITALS: BP 124/65
[2021-06-03 03:57] VITALS: BP 109/72
--- NOTE | 2021-06-03 04:40 | NUR ---
ASSUMED PT CARE AT 1900. PT ALERT & ORIENTED X 4. PT HAS C/O OF ABDOMINAL PAIN WHERE WOUND VAC IS PLACED AND REQUESTS PAIN MEDS Q6. ADMINISTERED PAIN MEDS PRN. PT HAS RIGHT UPPER DUOBLE LUMEN PICC, FLUSHED AND ASPIRATED BOTH LINES FOR BLOOD. CHANGED CAPS. IV ABX ADMINISTERED. CURRENTLY ON RA-O2 SATS 95%. POSSIBLE D/C TODAY. PT IS ABLE TO MAKE NEEDS KNOWN. CONTINUE WITH PLAN OF CARE.
[2021-06-03 04:55] LABS: CALCIUM 8.8 mg/dL (8.5-10.1); CREATININE 0.5 mg/dL (0.6-1.0); MAGNESIUM 2.2 mg/dL (1.8-2.4); POTASSIUM 4.6 mmol/L (3.5-5.1)
[2021-06-03 07:03] VITALS: BP 112/71
[2021-06-03 10:23] LABS: T-SPOT.TB Negative
[2021-06-03 13:31] VITALS: BP 112/71
[2021-06-03] MEDS ORDERED: PREDNISONE 10 M10 M1 PO (14:28)
--- NOTE | 2021-06-03 15:03 | NUR ---
DISCHARGE NOTE: TIM reviewed chart and spoke with nursing and attending physician. Pt remains in Enhanced Isolation due to COVID. Pt is medically stable for discharge home today. Pt will resume HH and Home IV abx. TIM spoke with Wanda, in intake at [facility] and Ghada with [facility] to notify of pt's discharge. TIM faxed clinical info and discharge orders/summary to both providers. Confirmed info was received. TIM spoke with pt via phone to discuss discharge. Pt is aware and in agreement with discharge plan. Pt will resume previously ordered IV abx: vancomycin and meropenem. Pt's family will be able to provide transportation home when discharged. Pt has wound vac in place. Contact info for HH and [facility] placed in pt's discharge summary. No additional SW needs identified at this time, but is available to assist should needs arise.
--- NOTE | 2021-06-03 16:41 | NUR ---
PT DISCHARGED HOME. ALL OF PT BELONGIGNS SENT HOME WITH PT. PT SENT HOME WITH HOME HEALTH. PT SENT HOME WITH PICC LINE IN PLACE FOR IV ANTIBIOTIC CONTINUATION AT HOME.
== END 2021-06-03 16:47 | disposition home or self-care (01) | DRG 177 ==
LOC: ER 09:59 → EROBS 13:22 → 3W 13:22 → EROBS 19:55 → 3W 22:45
PROVIDERS: Hospitalist; Nurse Practitioner; Specialist; Student in an Organized Health Care Education/Training Program; ADMIT Hospitalist; ATTEND Hospitalist
DX: U07.1 COVID-19 (principal); J12.82 Pneumonia due to coronavirus disease 2019; J96.01 Acute respiratory failure with hypoxia; E43 Unspecified severe protein-calorie malnutrition; K51.90 Ulcerative colitis, unspecified, without complications; Z88.8 Allergy status to other drugs, medicaments and biological substances; G43.909 Migraine, unspecified, not intractable, without status migrainosus; E66.01 Morbid (severe) obesity due to excess calories; Z68.30 Body mass index [BMI] 30.0-30.9, adult; D64.9 Anemia, unspecified
CPT/HCPCS: 10080

== ENCOUNTER → 2021-06-17 | Outpatient (CLI) | payer BC ==
[~2021-06-17] MED LIST changes: +PERCOCET 5-3251 EACH PO; +PERCOCET 7.5-31 EAC1 PO; +PREDNISONE 10 M10 M1 PO; +TORADOL 10 MG T10 MG PO
== END ==
LOC: HYPER 08:47
PROVIDERS: ATTEND Emergency Medicine Emergency Medical Services
DX: T81.31XD Disruption of external operation (surgical) wound, not elsewhere classified, subsequent encounter (principal); L98.492 Non-pressure chronic ulcer of skin of other sites with fat layer exposed; K51.918 Ulcerative colitis, unspecified with other complication; Z93.3 Colostomy status; Z79.52 Long term (current) use of systemic steroids; Z90.710 Acquired absence of both cervix and uterus; Y83.8 Other surgical procedures as the cause of abnormal reaction of the patient, or of later complication, without mention of misadventure at the time of the procedure

== ENCOUNTER → 2021-06-20 | Outpatient (CLI) | payer BC | LOC: CAT 06-19 10:58 | PROVIDERS: ATTEND Emergency Medicine | DX: K75.0 Abscess of liver (principal); K65.9 Peritonitis, unspecified; N20.0 Calculus of kidney; K63.89 Other specified diseases of intestine; T81.30XA Disruption of wound, unspecified, initial encounter; J90 Pleural effusion, not elsewhere classified; R91.8 Other nonspecific abnormal finding of lung field; R18.8 Other ascites; K51.918 Ulcerative colitis, unspecified with other complication; L98.492 Non-pressure chronic ulcer of skin of other sites with fat layer exposed ==

== ENCOUNTER → 2021-07-08 | Outpatient (CLI) | payer BC | LOC: HYPER 10:51 | PROVIDERS: ATTEND Emergency Medicine Emergency Medical Services | DX: T81.31XD Disruption of external operation (surgical) wound, not elsewhere classified, subsequent encounter (principal); L98.492 Non-pressure chronic ulcer of skin of other sites with fat layer exposed; K51.918 Ulcerative colitis, unspecified with other complication; Z93.3 Colostomy status; Z79.52 Long term (current) use of systemic steroids; Z90.710 Acquired absence of both cervix and uterus; Y83.8 Other surgical procedures as the cause of abnormal reaction of the patient, or of later complication, without mention of misadventure at the time of the procedure ==

== ENCOUNTER → 2021-07-10 | Outpatient (CLI) | payer BC | LOC: ULTRA 08:34 | PROVIDERS: ATTEND Specialist | DX: N20.0 Calculus of kidney (principal); K65.9 Peritonitis, unspecified ==